=== PATIENT | female | born 1960 | race Caucasian/White ===

== ENCOUNTER 2017-08-23 08:15 | Observation (INO) | payer OTHER ==
[2017-08-23] MEDS ORDERED: Sodium Chloride 0.9% 1,000 ML IV SCH (08:49)
[2017-08-23] MEDS ORDERED: Ondansetron 4 MG/2 ML SDV ONE (09:57)
[2017-08-23] MEDS ORDERED: HYDROmorphone 1 MG/ML Syringe ONE (10:03)
[2017-08-23] MEDS ORDERED: Sodium Chloride 0.9% 1,000 ML IV ONE (10:36)
--- NOTE | 2017-08-23 10:42 | EDM.PDOC ---
ED HPI GENERAL MEDICAL PROBLEM - General Chief Complaint: Abdominal Pain Stated Complaint: ABDOMINAL PAIN Time Seen by Provider: 08/23/17 10:31 - History of Present Illness INITIAL COMMENTS - FREE TEXT/NARRATIVE: T-sheet Left Upper Abdominal Pain Score (Numeric/FACES): 8 - Related Data Allergies Allergy/AdvReac Type Severity Reaction Status Date / Time acetaminophen [From Percocet] Allergy Itching Verified 08/23/17 10:31 oxycodone [From Percocet] Allergy Itching Verified 08/23/17 10:31 Home Meds: Home Meds Metoprolol Tartrate 100 mg PO BEDTIME 01/16/15 [History] Sertraline [Zoloft] 50 mg PO DAILY 01/16/16 [History] Amylase/Lipase/Protease [Creon DR 24,000 Unit] 2 tab PO ASDIRECTED 06/01/16 [ History] Hydrocodone/Acetaminophen [Lortab 10-325 mg Tablet] 1 tab PO ASDIRECTED PRN 08/13 [History] Inulin/Chromium Picolinate [Fiber Gummies] 2 tab.chew PO DAILY 06/01/16 [History ] Lansoprazole [Prevacid] 30 mg PO DAILY 06/01/16 [History] Ondansetron HCl [Ondansetron] 4 mg PO ASDIRECTED PRN 06/01/16 [History] Bismuth Subsalicylate [Pepto-Bismol] 262 mg PO ASDIRECTED 08/23/17 [History] Sucralfate 1 gram PO BID 08/23/17 [History] Past Medical History - Past Health History Medical/Surgical History: Denies Medical/Surgical History HEENT History: Reports: None Cardiovascular History: Reports: Hypertension Respiratory History: Reports: None Gastrointestinal History: Reports: Diverticulosis, GERD, Pancreatitis Genitourinary History: Reports: 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 Musculoskeletal History: Reports: None Neurological History: Reports: None Psychiatric History: Reports: Anxiety, Depression Endocrine/Metabolic History: Reports: None Hematologic History: Reports: None Immunologic History: Reports: None Oncologic (Cancer) History: Reports: None Dermatologic History: Reports: None - Infectious Disease History Infectious Disease History: Reports: Chicken Pox - Past Surgical History Head Surgeries/Procedures: Reports: None HEENT Surgical History: Reports: Cataract Surgery Cardiovascular Surgical History: Reports: None Respiratory Surgical History: Reports: None GI Surgical History: Reports: Cholecystectomy, EGD Other GI Surgeries/Procedures: hx of whipple procedure done in August of 2014 Female Surgical History: Reports: None Endocrine Surgical History: Reports: None Musculoskeletal Surgical History: Reports: Hip Replacement Dermatological Surgical History: Reports: None Social & Family History - Family History Family Medical History: Noncontributory - Tobacco Use Smoking Status *Q: Current Every Day Smoker Years of Tobacco use: 20 Packs/Tins Daily: 0.5 Used Tobacco, but Quit: Yes Month/Year Tobacco Last Used: December Second Hand Smoke Exposure: No - Alcohol Use Days Per Week of Alcohol Use: 2 Number of Drinks Per Day: 2 Total Drinks Per Week: 4 - Recreational Drug Use Recreational Drug Use: No Drug Use in Last 12 Months: No ED ROS GENERAL - Review of Systems Review Of Systems: See Below (T-sheet) ED EXAM, GENERAL - Physical Exam Exam: See Below (T-sheet) Course - Vital Signs Last Recorded V/S: Last Vital Signs Temp 35.2 C 08/23/17 10:27 Pulse 91 08/23/17 10:27 Resp 18 08/23/17 10:27 BP 153/93 H 08/23/17 10:27 Pulse Ox 96 08/23/17 10:27 - Orders/Labs/Meds Orders: Active Orders 24 hr Category Date Time Status Sodium Chloride 0.9% [Normal Saline] 1,000 ml Med 08/23/17 10:36 Active IV .Bolus Medication Orders Sodium Chloride (Normal Saline) 1,000 mls @ 999 mls/hr IV .Bolus ONE Stop: 08/23/17 11:36 Meds: Medications Generic Name Dose Route Start Last Admin Trade Name Freq PRN Reason Stop Dose Admin Sodium Chloride 1,000 mls @ 999 mls/hr 08/23/17 10:36 Normal Saline IV 08/23/17 11:36 .Bolus ONE Departure - Departure Time of Disposition: 10:41 Disposition: Refer to Observation Condition: Good Clinical Impression: Pancreatitis - Discharge Information Referrals: Ashanti Malone NP [Primary Care Provider] - - My Orders Last 24 Hours: My Active Orders 08/23/17 10:36 Sodium Chloride 0.9% [Normal Saline] 1,000 ml IV .Bolus - Assessment/Plan Last 24 Hours: My Active Orders 08/23/17 10:36 Sodium Chloride 0.9% [Normal Saline] 1,000 ml IV .Bolus
[2017-08-23] MEDS ORDERED: Ondansetron 4 MG/2 ML SDV IVPUSH PRN (12:55)
--- NOTE | 2017-08-23 13:31 | PCM.HP ---
H&P History of Present Illness - General Admit Problem/Dx: Admission Diagnosis/Problem Admission Diagnosis/Problem Pancreatitis - History of Present Illness Initial Comments - Free Text/Narative: 54 yo female with pmh of chronic pancreatitis s/p cholecystectomy and pylorus preserving pancreaticoduodenectomy for acute on chronic pancreatitis. She was doing well until this month started to develop intermitent abdominal pain with nausea and vomiting. Due to worsening symptoms patient presented to the ED department. Laboratory values were normal according to ED provider but CT scan of abdomen reported stranding about the pancreas. Left Upper Abdominal Pain Score (Numeric/FACES): 3 - Related Data Allergies/Adverse Reactions: Allergies Allergy/AdvReac Type Severity Reaction Status Date / Time acetaminophen [From Percocet] Allergy Itching Verified 08/23/17 10:31 oxycodone [From Percocet] Allergy Itching Verified 08/23/17 10:31 Home Medications: Home Meds Metoprolol Tartrate 100 mg PO BEDTIME 01/16/15 [History] Sertraline [Zoloft] 50 mg PO DAILY 01/16/16 [History] Amylase/Lipase/Protease [Creon DR 24,000 Unit] 2 tab PO ASDIRECTED 06/01/16 [ History] Hydrocodone/Acetaminophen [Lortab 10-325 mg Tablet] 1 tab PO ASDIRECTED PRN 08/13 [History] Inulin/Chromium Picolinate [Fiber Gummies] 2 tab.chew PO DAILY 06/01/16 [History ] Lansoprazole [Prevacid] 30 mg PO DAILY 06/01/16 [History] Ondansetron HCl [Ondansetron] 4 mg PO ASDIRECTED PRN 06/01/16 [History] Bismuth Subsalicylate [Pepto-Bismol] 262 mg PO ASDIRECTED 08/23/17 [History] Sucralfate 1 gram PO BID 08/23/17 [History] Past Medical History - Past Health History Medical/Surgical History: Denies Medical/Surgical History HEENT History: Reports: None Cardiovascular History: Reports: Hypertension Respiratory History: Reports: None Gastrointestinal History: Reports: GERD, Pancreatitis Genitourinary History: Reports: 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 Musculoskeletal History: Reports: Arthritis Neurological History: Reports: None Psychiatric History: Reports: Anxiety, Depression Endocrine/Metabolic History: Reports: None Hematologic History: Reports: None Immunologic History: Reports: None Oncologic (Cancer) History: Reports: None Dermatologic History: Reports: None - Infectious Disease History Infectious Disease History: Reports: Chicken Pox - Past Surgical History Head Surgeries/Procedures: Reports: None HEENT Surgical History: Reports: Cataract Surgery Cardiovascular Surgical History: Reports: None Respiratory Surgical History: Reports: None GI Surgical History: Reports: Cholecystectomy, EGD Other GI Surgeries/Procedures: hx of whipple procedure done in August of 2014 Female Surgical History: Reports: None Endocrine Surgical History: Reports: None Musculoskeletal Surgical History: Reports: Hip Replacement Dermatological Surgical History: Reports: None Social & Family History - Family History Family Medical History: Noncontributory - Tobacco Use Smoking Status *Q: Current Every Day Smoker Years of Tobacco use: 20 Packs/Tins Daily: 0.5 Used Tobacco, but Quit: Yes Month/Year Tobacco Last Used: December Second Hand Smoke Exposure: No - Caffeine Use Caffeine Use: Reports: Coffee - Alcohol Use Days Per Week of Alcohol Use: 2 Number of Drinks Per Day: 2 Total Drinks Per Week: 4 - Recreational Drug Use Recreational Drug Use: No Drug Use in Last 12 Months: No H&P Review of Systems - Review of Systems: Review Of Systems: ROS reveals no pertinent complaints other than HPI. Exam - Exam Exam: See Below - Vital Signs Vital Signs: Last Vital Signs Temp 36.4 C 08/23/17 11:33 Pulse 60 08/23/17 11:33 Resp 18 08/23/17 11:33 BP 166/78 H 08/23/17 11:33 Pulse Ox 96 08/23/17 12:55 Weight: 84.2 kg - Exam General: Alert, Oriented HEENT: Mucosa Moist & [place] Neck: Supple, Trachea Midline Lungs: Clear to Auscultation, Normal Respiratory Effort Cardiovascular: Regular Rate, Regular Rhythm GI/Abdominal Exam: Normal Bowel Sounds, Soft, Non-Tender, No Distention Extremities: Non-Tender, No Pedal Edema Skin: Warm, Dry, Intact - Patient Data Lab Results Last 24 hrs: Laboratory Results - last 24 hr 08/23/17 Range/Units 11:33 Urine Color YELLOW Urine Appearance CLEAR Urine pH 6.0 (5.0-8.0) Ur Specific [place] <= 1.005 (1.001-1.035) Urine Protein NEGATIVE (NEGATIVE) mg/dL Urine Glucose (UA) NEGATIVE (NEGATIVE) mg/dL Urine Ketones NEGATIVE (NEGATIVE) mg/dL Urine Occult Blood TRACE-LYSED (NEGATIVE) Urine Nitrite NEGATIVE (NEGATIVE) Urine Bilirubin NEGATIVE (NEGATIVE) Urine Urobilinogen 0.2 (<2.0) EU/dL Ur Leukocyte Esterase NEGATIVE (NEGATIVE) Urine RBC 0-1 (0-2/HPF) Urine WBC 0-1 (0-5/HPF) Ur Epithelial Cells OCCASIONAL (NONE-FEW) Urine Bacteria RARE (NEGATIVE) Result Diagrams: 08/24/17 05:28 08/24/17 05:28 Problem List Initiated/Reviewed/Updated: Yes Orders Last 24hrs: Active Orders 24 hr Category Date Time Status Patient Status [ADT] Stat ADT 08/23/17 10:48 Active Oxygen Therapy [RC] PRN Care 08/23/17 12:55 Ordered Up ad Erika [RC] ASDIRECTED Care 08/23/17 12:55 Ordered VTE/DVT Education [RC] PER UNIT ROUTINE Care 08/23/17 12:55 Ordered Vital Signs [RC] Q4H Care 08/23/17 12:55 Ordered Nothing per Oral Now Diet [DIET] Diet 08/23/17 Breakfast Ordered CBC WITH AUTO DIFF [HEME] AM Lab 08/24/17 05:11 Ordered CBC WITH AUTO DIFF [HEME] AM Lab 08/25/17 05:11 Ordered COMPREHENSIVE METABOLIC PN,CMP [CHEM] AM Lab 08/24/17 05:11 Ordered COMPREHENSIVE METABOLIC PN,CMP [CHEM] AM Lab 08/25/17 05:11 Ordered LIPASE [CHEM] AM Lab 08/24/17 05:11 Ordered LIPID PANEL [CHEM] AM Lab 08/24/17 05:11 Ordered Enoxaparin [Lovenox] Med 08/23/17 13:00 Ordered 40 mg SUBCUT Q24H Morphine Med 08/23/17 12:55 Ordered 2 mg IVPUSH Q2H PRN Ondansetron [Zofran] Med 08/23/17 12:55 Ordered 4 mg IVPUSH Q4H PRN Sodium Chloride 0.9% [Normal Saline] 1,000 ml Med 08/23/17 08:49 Active IV ASDIRECTED Sodium Chloride 0.9% [Normal Saline] 1,000 ml Med 08/23/17 13:00 Ordered IV ASDIRECTED Sequential Compression Device [OM.PC] Per Unit Routine Oth 08/23/17 12:56 Ordered Resuscitation Status Routine Resus Stat 08/23/17 12:55 Ordered Medication Orders Enoxaparin Sodium (Lovenox) 40 mg SUBCUT Q24H [facility] Sodium Chloride (Normal Saline) 1,000 mls @ 999 mls/hr IV ASDIRECTED [facility] Last Admin: 08/23/17 09:02 Dose: 999 mls/hr Sodium Chloride (Normal Saline) 1,000 mls @ 200 mls/hr IV ASDIRECTED [facility] Morphine Sulfate (Morphine) 2 mg IVPUSH Q2H PRN PRN Reason: Pain (severe 7-10) Stop: 08/24/17 12:57 Ondansetron HCl (Zofran) 4 mg IVPUSH Q4H PRN PRN Reason: Nausea Assessment/Plan Comment:: 57 yo female admitted with acute on chronic pancreatitis. We will treat with IV fluids, bowel rest, and prn morphine for abdominal pain.
[2017-08-23 14:24] LABS: CHLORIDE,CL 99 mmol/L (98-107); SODIUM,NA 136 mmol/L (136-145)
[2017-08-23] MEDS: Morphine 4 MG/ML Syringe IVPUSH PRN ×3 (14:46→21:48)
[2017-08-23] MEDS: Enoxaparin 40 MG/0.4 ML Syringe SUBCUT SCH (14:46)
[2017-08-23] MEDS: Sodium Chloride 0.9% 1,000 ML IV SCH ×2 (14:47→20:15)
--- NOTE | 2017-08-23 17:01 | CT ---
CT of the abdomen and pelvis without contrast. HISTORY: Pain TECHNIQUE: Axial CT images were obtained of the abdomen and pelvis without contrast. Coronal and sagi ttal reconstructions obtained. FINDINGS: The lung bases are clear, no pleural effusion. The liver appears heterogeneous in density without a focal hepatic mass. The spleen is nodular in con tour containing multiple small calcifications. The patient is status post Whipple. There is mild stra nding adjacent to the remaining pancreas. Pathologically enlarged mesenteric and retroperitoneal lymph nodes are noted. Mild thickening of the left adrenal gland. There are no calcifications noted within the kidneys or along the courses of the ureters bilaterally. The large and small bowel are normal in caliber without evidence of obstruction. The appendix appears normal. There is no bulky pelvic lymphadenopathy. No free fluid. No free air. The urinary bladder ap pears normal. Mild diverticulosis without evidence of diverticulitis. Urinary bladder is normal. Right total hip hardware demonstrated. Mild degenerative changes noted within the lumbar spine. IMPRESSION: 1. Mild peripancreatic stranding adjacent to the residual pancreas consistent with pancreatitis. 2. Patient is status post Whipple procedure. 3. Moderate fatty infiltration of the liver. 4. Nodular and heterogeneous appearing spleen. Correlation with previous imaging may be beneficial. L ine 5. Nodular thickening of the left adrenal gland.
[2017-08-24] MEDS: Sodium Chloride 0.9% 1,000 ML IV SCH ×5 (01:21→21:43)
[2017-08-24] MEDS: Morphine 4 MG/ML Syringe IVPUSH PRN ×2 (04:15→08:18)
[2017-08-24 06:20] LABS: CHLORIDE,CL 107 mmol/L (98-107); SODIUM,NA 139 mmol/L (136-145)
[2017-08-24] MEDS: Enoxaparin 40 MG/0.4 ML Syringe SUBCUT SCH (12:01)
[2017-08-24] MEDS ORDERED: Metoprolol Tartrate 50 MG Tab PO ONE (12:04)
[2017-08-24] MEDS ORDERED: Pantoprazole 40 MG Vial IVPUSH SCH (12:15)
[2017-08-24] MEDS ORDERED: HYDROmorphone 1 MG/ML Syringe IVPUSH PRN (16:22)
--- NOTE | 2017-08-24 18:28 | PCM.PN ---
- General Info Date of Service: 08/24/17 Subjective Update: Patient's abdominal pain is improving, she did not require Zofran since admission, she has not required all that much in terms of pain medication. She does have a chronic history of pancreatitis, she states that her last bout that required hospitalization was one year ago. - Review of Systems General: Reports: Weakness Gastrointestinal: Reports: Abdominal Pain - Patient Data Vitals - Most Recent: Last Vital Signs Temp 35.9 C 08/24/17 15:00 Pulse 50 L 08/24/17 15:00 Resp 18 08/24/17 15:00 BP 142/80 H 08/24/17 15:00 Pulse Ox 97 08/24/17 15:00 Weight - Most Recent: 84.2 kg I&O - Last 24 Hours: Intake & Output 08/24/17 08/24/17 08/24/17 06:59 14:59 22:59 Intake Total 999 2740 Output Total 1110 3220 Balance -111 -480 Lab Results Last 24 Hours: Laboratory Results - last 24 hr 08/24/17 08/24/17 Range/Units 05:28 05:28 WBC 6.45 (4.0-11.0) K/uL RBC 4.01 L (4.30-5.90) M/uL Hgb 14.4 (12.0-16.0) g/dL Hct 42.5 (36.0-46.0) % MCV 106.0 H (80.0-98.0) fL MCH 35.9 H (27.0-32.0) pg MCHC 33.9 (31.0-37.0) g/dL RDW Std Deviation 55.5 (28.0-62.0) fl RDW Coeff of Rosalinda 14 (11.0-15.0) % Plt Count 194 (150-400) K/uL MPV 10.40 (7.40-12.00) fL Neut % (Auto) 57.5 (48.0-80.0) % Lymph % (Auto) 32.2 (16.0-40.0) % [place] % (Auto) 8.2 (0.0-15.0) % Eos % (Auto) 1.6 (0.0-7.0) % Baso % (Auto) 0.5 (0.0-1.5) % Neut # (Auto) 3.7 (1.4-5.7) K/uL Lymph # (Auto) 2.1 (0.6-2.4) K/uL [place] # (Auto) 0.5 (0.0-0.8) K/uL Eos # (Auto) 0.1 (0.0-0.7) K/uL Baso # (Auto) 0.0 (0.0-0.1) K/uL Nucleated RBC % 0.0 /100WBC Nucleated RBCs # 0 K/uL Sodium 139 (136-145) mmol/L Potassium 3.5 (3.5-5.1) mmol/L Chloride 107 (98-107) mmol/L Carbon Dioxide 25.2 (21.0-32.0) mmol/L BUN 4 L (7.0-18.0) mg/dL Creatinine 0.5 L (0.6-1.0) mg/dL Est Cr Clr Drug Dosing 140.42 mL/min Estimated GFR (MDRD) > 60.0 ml/min Glucose 82 (74-106) mg/dL Calcium 8.1 L (8.5-10.1) mg/dL Total Bilirubin 0.6 (0.2-1.0) mg/dL AST 43 H (15-37) IU/L ALT 25 (14-63) IU/L Alkaline Phosphatase 73 (46-116) U/L Total Protein 5.6 L (6.4-8.2) g/dL Albumin 2.6 L (3.4-5.0) g/dL Globulin 3.0 (2.0-3.5) g/dL Albumin/Globulin Ratio 0.9 L (1.3-2.8) Triglycerides 134 (0-200) mg/dL Cholesterol 109 (50-200) mg/dL LDL Cholesterol, Calc 49 L (60-180) mg/dL VLDL Cholesterol 26 (5-55) mg/dL HDL Cholesterol 33 L (40-60) mg/dL Cholesterol/HDL Ratio 3.3 (3.3-6.0) Lipase 112 (73-393) U/L Med Orders - Current: Current Medications Enoxaparin Sodium (Lovenox) 40 mg SUBCUT Q24H [facility] Last Admin: 08/24/17 12:01 Dose: 40 mg Hydromorphone HCl (Dilaudid) 1 mg IVPUSH Q2H PRN PRN Reason: Pain Last Admin: 08/24/17 16:48 Dose: 1 mg Sodium Chloride (Normal Saline) 1,000 mls @ 999 mls/hr IV ASDIRECTED [facility] Last Admin: 08/23/17 09:02 Dose: 999 mls/hr Sodium Chloride (Normal Saline) 1,000 mls @ 200 mls/hr IV ASDIRECTED [facility] Last Admin: 08/24/17 16:25 Dose: 200 mls/hr Ondansetron HCl (Zofran) 4 mg IVPUSH Q4H PRN PRN Reason: Nausea Pantoprazole Sodium (Protonix Iv) 40 mg IVPUSH DAILY [facility] Last Admin: 08/24/17 12:43 Dose: 40 mg Discontinued Medications Hydromorphone HCl (Dilaudid) Confirm Administered Dose 1 mg .ROUTE .STK-MED ONE Stop: 08/23/17 10:04 Last Admin: 08/23/17 10:06 Dose: 1 mg Sodium Chloride (Normal Saline) 1,000 mls @ 999 mls/hr IV .Bolus ONE Stop: 08/23/17 11:36 Last Admin: 08/23/17 10:41 Dose: 999 mls/hr Metoprolol Tartrate (Lopressor) 50 mg PO ONETIME ONE Stop: 08/24/17 12:05 Last Admin: 08/24/17 12:43 Dose: 50 mg Morphine Sulfate (Morphine) 2 mg IVPUSH Q2H PRN PRN Reason: Pain (severe 7-10) Stop: 08/24/17 12:57 Last Admin: 08/24/17 08:18 Dose: 2 mg Ondansetron HCl (Zofran) Confirm Administered Dose 4 mg .ROUTE .STK-MED ONE Stop: 08/23/17 09:58 Last Admin: 08/23/17 10:00 Dose: 4 mg - Exam General: Alert, Oriented, Cooperative, Mild Distress Lungs: Clear to Auscultation, Normal Respiratory Effort Cardiovascular: Regular Rate, Regular Rhythm GI/Abdominal Exam: Tender, Abnormal Bowel Sounds Extremities: Normal Inspection, Normal Range of Motion, Non-Tender - Problem List Review Problem List Initiated/Reviewed/Updated: Yes - My Orders Last 24 Hours: My Active Orders 08/24/17 12:15 Pantoprazole [ProTONIX IV] 40 mg IVPUSH DAILY 08/24/17 16:22 HYDROmorphone [Dilaudid] 1 mg IVPUSH Q2H PRN 08/25/17 Breakfast Clear Liquid Diet [DIET] - Plan Plan:: 57 yo female admitted with acute on chronic pancreatitis. We will treat with IV fluids, bowel rest, and prn morphine for abdominal pain. -Protonix for the patient 40 mg IV twice a day -Shall advance the patient's diet to clear liquids later in the evening and assess if she is able to tolerate without any nausea or vomiting.
[2017-08-24] MEDS: Pantoprazole 40 MG Vial IVPUSH SCH (21:41)
[2017-08-25] MEDS: Sodium Chloride 0.9% 1,000 ML IV SCH ×4 (02:41→14:04)
[2017-08-25 05:49] LABS: CHLORIDE,CL 105 mmol/L (98-107); SODIUM,NA 138 mmol/L (136-145)
[2017-08-25] MEDS ORDERED: Potassium Chloride 20 MEQ Tab.ER PO ONE (09:06)
[2017-08-25] MEDS: Pantoprazole 40 MG Vial IVPUSH SCH (10:18)
[2017-08-25] MEDS ORDERED: Magnesium Sulfate/Water 4 GM in Premix Bag 1 BAG IV ONE (10:19)
--- NOTE | 2017-08-25 10:54 | PCM.PN ---
- General Info Date of Service: 08/25/17 Subjective Update: This is a 57 yo female with acute on chronic pancreatitis HD 3. Patient stated this morning that shes feeling much better today. She hasnt taken the morphine since 5pm yesterday. She was started on clear liquid which she was able to tolerate. Not complaining of nausea/vomiting. Functional Status: Reports: Pain Controlled, Tolerating Diet, Ambulating - Review of Systems General: Reports: No Symptoms HEENT: Reports: No Symptoms Pulmonary: Reports: No Symptoms Cardiovascular: Reports: No Symptoms Gastrointestinal: Reports: No Symptoms Genitourinary: Reports: No Symptoms - Patient Data Vitals - Most Recent: Last Vital Signs Temp 36.3 C 08/25/17 07:00 Pulse 68 08/25/17 07:00 Resp 16 08/25/17 07:00 BP 137/74 08/25/17 07:00 Pulse Ox 97 08/25/17 07:00 Weight - Most Recent: 84.2 kg I&O - Last 24 Hours: Intake & Output 08/24/17 08/25/17 08/25/17 22:59 06:59 14:59 Intake Total 2740 3143 1119 Output Total 3220 3560 Balance -480 -417 1119 Lab Results Last 24 Hours: Laboratory Results - last 24 hr 08/25/17 08/25/17 08/25/17 Range/Units 05:03 05:03 08:38 WBC 5.98 (4.0-11.0) K/uL RBC 4.07 L (4.30-5.90) M/uL Hgb 14.5 (12.0-16.0) g/dL Hct 42.8 (36.0-46.0) % MCV 105.2 H (80.0-98.0) fL MCH 35.6 H (27.0-32.0) pg MCHC 33.9 (31.0-37.0) g/dL RDW Std Deviation 53.5 (28.0-62.0) fl RDW Coeff of Rosalinda 14 (11.0-15.0) % Plt Count 200 (150-400) K/uL MPV 9.80 (7.40-12.00) fL Neut % (Auto) 62.9 (48.0-80.0) % Lymph % (Auto) 26.9 (16.0-40.0) % [place] % (Auto) 8.7 (0.0-15.0) % Eos % (Auto) 1.2 (0.0-7.0) % Baso % (Auto) 0.3 (0.0-1.5) % Neut # (Auto) 3.8 (1.4-5.7) K/uL Lymph # (Auto) 1.6 (0.6-2.4) K/uL [place] # (Auto) 0.5 (0.0-0.8) K/uL Eos # (Auto) 0.1 (0.0-0.7) K/uL Baso # (Auto) 0.0 (0.0-0.1) K/uL Nucleated RBC % 0.0 /100WBC Nucleated RBCs # 0 K/uL Sodium 138 (136-145) mmol/L Potassium 3.2 L (3.5-5.1) mmol/L Chloride 105 (98-107) mmol/L Carbon Dioxide 24.4 (21.0-32.0) mmol/L BUN 3 L (7.0-18.0) mg/dL Creatinine 0.4 L (0.6-1.0) mg/dL Est Cr Clr Drug Dosing 175.53 mL/min Estimated GFR (MDRD) > 60.0 ml/min Glucose 79 (74-106) mg/dL Calcium 8.4 L (8.5-10.1) mg/dL Magnesium 1.1 L (1.5-2.0) mg/dL Total Bilirubin 0.8 (0.2-1.0) mg/dL AST 40 H (15-37) IU/L ALT 24 (14-63) IU/L Alkaline Phosphatase 72 (46-116) U/L Total Protein 5.7 L (6.4-8.2) g/dL Albumin 2.6 L (3.4-5.0) g/dL Globulin 3.1 (2.0-3.5) g/dL Albumin/Globulin Ratio 0.8 L (1.3-2.8) Med Orders - Current: Current Medications Enoxaparin Sodium (Lovenox) 40 mg SUBCUT Q24H [facility] Last Admin: 08/24/17 12:01 Dose: 40 mg Hydromorphone HCl (Dilaudid) 1 mg IVPUSH Q2H PRN PRN Reason: Pain Last Admin: 08/24/17 16:48 Dose: 1 mg Magnesium Sulfate 4 gm/ Premix 100 mls @ 50 mls/hr IV ONETIME ONE Stop: 08/25/17 12:18 Last Admin: 08/25/17 10:37 Dose: 50 mls/hr Sodium Chloride (Normal Saline) 1,000 mls @ 150 [facility] Last Admin: 08/25/17 10:37 Dose: 150 mls/hr Ondansetron HCl (Zofran) 4 mg IVPUSH Q4H PRN PRN Reason: Nausea Pantoprazole Sodium (Protonix Iv) 40 mg IVPUSH BID [facility] Last Admin: 08/25/17 10:18 Dose: 40 mg Discontinued Medications Hydromorphone HCl (Dilaudid) Confirm Administered Dose 1 mg .ROUTE .STK-MED ONE Stop: 08/23/17 10:04 Last Admin: 08/23/17 10:06 Dose: 1 mg Sodium Chloride (Normal Saline) 1,000 mls @ 999 mls/hr IV .Bolus ONE Stop: 08/23/17 11:36 Last Admin: 08/23/17 10:41 Dose: 999 mls/hr Sodium Chloride (Normal Saline) 1,000 mls @ 999 [facility] Last Admin: 08/23/17 09:02 Dose: 999 mls/hr Sodium Chloride (Normal Saline) 1,000 mls @ 200 [facility]ls[facility] Last Admin: 08/25/17 07:50 Dose: 200 mls/hr Metoprolol Tartrate (Lopressor) 50 mg PO ONETIME ONE Stop: 08/24/17 12:05 Last Admin: 08/24/17 12:43 Dose: 50 mg Morphine Sulfate (Morphine) 2 mg IVPUSH Q2H PRN PRN Reason: Pain (severe 7-10) Stop: 08/24/17 12:57 Last Admin: 08/24/17 08:18 Dose: 2 mg Ondansetron HCl (Zofran) Confirm Administered Dose 4 mg .ROUTE .STK-MED ONE Stop: 08/23/17 09:58 Last Admin: 08/23/17 10:00 Dose: 4 mg Pantoprazole Sodium (Protonix Iv) 40 mg IVPUSH DAILY [facility] Last Admin: 08/24/17 12:43 Dose: 40 mg Potassium Chloride (Klor-Con M20) 40 meq PO ONETIME ONE Stop: 08/25/17 09:07 Last Admin: 08/25/17 10:18 Dose: 40 meq - Exam General: Alert, Oriented, No Acute Distress Neck: Supple Lungs: Clear to Auscultation, Normal Respiratory Effort Cardiovascular: Regular Rate, Regular Rhythm GI/Abdominal Exam: Normal Bowel Sounds, Soft, Non-Tender, No Organomegaly, No Distention Extremities: Normal Inspection, Normal Range of Motion, Non-Tender, No Pedal Edema, Normal Capillary Refill Skin: Warm, Dry, Intact Neurological: No New Focal Deficit - Problem List Review Problem List Initiated/Reviewed/Updated: Yes - My Orders Last 24 Hours: My Active Orders 08/24/17 16:22 HYDROmorphone [Dilaudid] 1 mg IVPUSH Q2H PRN 08/24/17 21:00 Pantoprazole [ProTONIX IV] 40 mg IVPUSH BID 08/25/17 05:03 PHOSPHORUS [CHEM] Routine 08/25/17 10:19 Magnesium Sulfate/Water [Magnesium Sulfate 4 GM in Water 100 ML] 4 gm Premix Bag 1 bag IV ONETIME - Assessment Assessment:: This is a 57 yo female with acute on chronic pancreatitis HD 3. - Plan Plan:: 57 yo female admitted secondary to abdominal pain, inability to tolerate oral intake, nausea/vomiting likely etiology is acute on chronic pancreatitis. We will treat with IV fluids, bowel rest, and prn morphine for abdominal pain. A/P: 1: Abdominal pain, nausea/vomiting all resolved secondary to Acute on Chronic Pancreatitis - Pt. seems to be tolerating clear liquid and so we will be progressing her diet. 2: Hypokalemia and hypomagnesemia - checked Mg as well which came back low at 1.1 - started on 40mEq K tab and 4mg IV one time dose 3. If the patient tolerates the diet progression she will be DC'd later today and will follow up with PCP and GI
[2017-08-25] MEDS: Enoxaparin 40 MG/0.4 ML Syringe SUBCUT SCH (14:31)
[2017-08-25 16:49] VITALS: BP 166/68
[2017-08-25] MEDS ORDERED: Metoprolol Tartrate 50 MG Tab PO ONE (17:17)
--- NOTE | 2017-08-25 17:20 | PCM.DCSUM1 ---
<ChristinaJm Z - Last Filed: 08/25/17 17:20> Discharge Summary - Discharge Data Discharge Disposition: Home, Self-Care 01 Condition: Stable - Patient Instructions Diet: Heart Healthy Diet, No Alcoholic Beverages Activity: As Tolerated Driving: Do Not Drive Showering/Bathing: May Shower Notify Provider of: Fever, Increased Pain, Swelling and Redness, Drainage, Nausea and/or Vomiting - Discharge Plan Prescriptions/Med Rec: Omeprazole 40 mg PO BIDAC 30 Days #60 cap.sr Home Medications: Home Meds Metoprolol Tartrate 100 mg PO BEDTIME 01/16/15 [History] Sertraline [Zoloft] 50 mg PO DAILY 01/16/16 [History] Amylase/Lipase/Protease [Crepooja DR 24,000 Unit] 2 tab PO ASDIRECTED 06/01/16 [ History] Hydrocodone/Acetaminophen [Lortab 10-325 mg Tablet] 1 tab PO ASDIRECTED PRN 08/13 [History] Inulin/Chromium Picolinate [Fiber Gummies] 2 tab.chew PO DAILY 06/01/16 [History ] Ondansetron HCl [Ondansetron] 4 mg PO ASDIRECTED PRN 06/01/16 [History] Bismuth Subsalicylate [Pepto-Bismol] 262 mg PO ASDIRECTED 08/23/17 [History] Sucralfate 1 gram PO BID 08/23/17 [History] Omeprazole 40 mg PO BIDAC 30 Days #60 cap.sr 08/25/17 [Rx] Patient Handouts: Acetaminophen; Hydrocodone tablets or capsules, Acute Pancreatitis, [id number], Chronic Pancreatitis, Omeprazole tablets (OTC) Referrals: Ashanti Malone NP [Primary Care Provider] - 08/30/17 9:45 am Denise Flaherty NP [Ordering Only Provider] - 10/11/17 2:30 pm - Patient Data Vitals - Most Recent: Last Vital Signs Temp 36.3 C 08/25/17 15:00 Pulse 64 08/25/17 15:00 Resp 16 08/25/17 15:00 BP 166/68 H 08/25/17 15:00 Pulse Ox 98 08/25/17 15:00 Weight - Most Recent: 84.2 kg I&O - Last 24 hours: Intake & Output 08/25/17 08/25/17 08/25/17 06:59 14:59 22:59 Intake Total 3147 1118 4903 Output Total 3568 6350 Balance -417 1119 -4624 Lab Results - Last 24 hrs: Laboratory Results - last 24 hr 08/25/17 08/25/17 08/25/17 Range/Units 05:03 05:03 05:03 WBC 5.98 (4.0-11.0) K/uL RBC 4.07 L (4.30-5.90) M/uL Hgb 14.5 (12.0-16.0) g/dL Hct 42.8 (36.0-46.0) % MCV 105.2 H (80.0-98.0) fL MCH 35.6 H (27.0-32.0) pg MCHC 33.9 (31.0-37.0) g/dL RDW Std Deviation 53.5 (28.0-62.0) fl RDW Coeff of Rosalinda 14 (11.0-15.0) % Plt Count 200 (150-400) K/uL MPV 9.80 (7.40-12.00) fL Neut % (Auto) 62.9 (48.0-80.0) % Lymph % (Auto) 26.9 (16.0-40.0) % Wallace % (Auto) 8.7 (0.0-15.0) % Eos % (Auto) 1.2 (0.0-7.0) % Baso % (Auto) 0.3 (0.0-1.5) % Neut # (Auto) 3.8 (1.4-5.7) K/uL Lymph # (Auto) 1.6 (0.6-2.4) K/uL Wallace # (Auto) 0.5 (0.0-0.8) K/uL Eos # (Auto) 0.1 (0.0-0.7) K/uL Baso # (Auto) 0.0 (0.0-0.1) K/uL Nucleated RBC % 0.0 /100WBC Nucleated RBCs # 0 K/uL Sodium 138 (136-145) mmol/L Potassium 3.2 L (3.5-5.1) mmol/L Chloride 105 (98-107) mmol/L Carbon Dioxide 24.4 (21.0-32.0) mmol/L BUN 3 L (7.0-18.0) mg/dL Creatinine 0.4 L (0.6-1.0) mg/dL Est Cr Clr Drug Dosing 175.53 mL/min Estimated GFR (MDRD) > 60.0 ml/min Glucose 79 (74-106) mg/dL Calcium 8.4 L (8.5-10.1) mg/dL Phosphorus 4.0 (2.6-4.7) mg/dL Magnesium (1.5-2.0) mg/dL Total Bilirubin 0.8 (0.2-1.0) mg/dL AST 40 H (15-37) IU/L ALT 24 (14-63) IU/L Alkaline Phosphatase 72 (46-116) U/L Total Protein 5.7 L (6.4-8.2) g/dL Albumin 2.6 L (3.4-5.0) g/dL Globulin 3.1 (2.0-3.5) g/dL Albumin/Globulin Ratio 0.8 L (1.3-2.8) 08/25/17 Range/Units 08:38 WBC (4.0-11.0) K/uL RBC (4.30-5.90) M/uL Hgb (12.0-16.0) g/dL Hct (36.0-46.0) % MCV (80.0-98.0) fL MCH (27.0-32.0) pg MCHC (31.0-37.0) g/dL RDW Std Deviation (28.0-62.0) fl RDW Coeff of Rosalinda (11.0-15.0) % Plt Count (150-400) K/uL MPV (7.40-12.00) fL Neut % (Auto) (48.0-80.0) % Lymph % (Auto) (16.0-40.0) % Wallace % (Auto) (0.0-15.0) % Eos % (Auto) (0.0-7.0) % Baso % (Auto) (0.0-1.5) % Neut # (Auto) (1.4-5.7) K/uL Lymph # (Auto) (0.6-2.4) K/uL Wallace # (Auto) (0.0-0.8) K/uL Eos # (Auto) (0.0-0.7) K/uL Baso # (Auto) (0.0-0.1) K/uL Nucleated RBC % /100WBC Nucleated RBCs # K/uL Sodium (136-145) mmol/L Potassium (3.5-5.1) mmol/L Chloride (98-107) mmol/L Carbon Dioxide (21.0-32.0) mmol/L BUN (7.0-18.0) mg/dL Creatinine (0.6-1.0) mg/dL Est Cr Clr Drug Dosing mL/min Estimated GFR (MDRD) ml/min Glucose (74-106) mg/dL Calcium (8.5-10.1) mg/dL Phosphorus (2.6-4.7) mg/dL Magnesium 1.1 L (1.5-2.0) mg/dL Total Bilirubin (0.2-1.0) mg/dL AST (15-37) IU/L ALT (14-63) IU/L Alkaline Phosphatase (46-116) U/L Total Protein (6.4-8.2) g/dL Albumin (3.4-5.0) g/dL Globulin (2.0-3.5) g/dL Albumin/Globulin Ratio (1.3-2.8) Med Orders - Current: Current Medications Enoxaparin Sodium (Lovenox) 40 mg SUBCUT Q24H [facility] Last Admin: 08/25/17 14:31 Dose: 40 mg Hydromorphone HCl (Dilaudid) 1 mg IVPUSH Q2H PRN PRN Reason: Pain Last Admin: 08/24/17 16:48 Dose: 1 mg Sodium Chloride (Normal Saline) 1,000 mls @ 150 mls/hr IV ASDIRECTED [facility] Last Admin: 08/25/17 14:04 Dose: 150 mls/hr Metoprolol Tartrate (Lopressor) 100 mg PO ONETIME ONE Stop: 08/25/17 17:18 Ondansetron HCl (Zofran) 4 mg IVPUSH Q4H PRN PRN Reason: Nausea Pantoprazole Sodium (Protonix Iv) 40 mg IVPUSH BID [facility] Last Admin: 08/25/17 10:18 Dose: 40 mg Discontinued Medications Hydromorphone HCl (Dilaudid) Confirm Administered Dose 1 mg .ROUTE .STK-MED ONE Stop: 08/23/17 10:04 Last Admin: 08/23/17 10:06 Dose: 1 mg Sodium Chloride (Normal Saline) 1,000 mls @ 999 mls/hr IV .Bolus ONE Stop: 08/23/17 11:36 Last Admin: 08/23/17 10:41 Dose: 999 mls/hr Sodium Chloride (Normal Saline) 1,000 mls @ 999 mls/hr IV ASDIRECTED [facility] Last Admin: 08/23/17 09:02 Dose: 999 mls/hr Sodium Chloride (Normal Saline) 1,000 mls @ 200 mls/hr IV ASDIRECTED [facility] Last Admin: 08/25/17 07:50 Dose: 200 mls/hr Magnesium Sulfate 4 gm/ Premix 100 mls @ 50 mls/hr IV ONETIME ONE Stop: 08/25/17 12:18 Last Admin: 08/25/17 10:37 Dose: 50 mls/hr Metoprolol Tartrate (Lopressor) 50 mg PO ONETIME ONE Stop: 08/24/17 12:05 Last Admin: 08/24/17 12:43 Dose: 50 mg Morphine Sulfate (Morphine) 2 mg IVPUSH Q2H PRN PRN Reason: Pain (severe 7-10) Stop: 08/24/17 12:57 Last Admin: 08/24/17 08:18 Dose: 2 mg Ondansetron HCl (Zofran) Confirm Administered Dose 4 mg .ROUTE .STK-MED ONE Stop: 08/23/17 09:58 Last Admin: 08/23/17 10:00 Dose: 4 mg Pantoprazole Sodium (Protonix Iv) 40 mg IVPUSH DAILY [facility] Last Admin: 08/24/17 12:43 Dose: 40 mg Potassium Chloride (Klor-Con M20) 40 meq PO ONETIME ONE Stop: 08/25/17 09:07 Last Admin: 08/25/17 10:18 Dose: 40 meq <Arden Baldwin - Last Filed: 08/26/17 08:33> Discharge Summary - Discharge Data Discharge Date: 08/25/17 - Patient Data Vitals - Most Recent: Last Vital Signs Temp 97.3 F 08/25/17 15:00 Pulse 64 08/25/17 17:48 Resp 16 08/25/17 15:00 BP 166/68 H 08/25/17 17:48 Pulse Ox 98 08/25/17 15:00 I&O - Last 24 hours: Intake & Output 08/25/17 08/26/17 08/26/17 22:59 06:59 14:59 Intake Total 2233 Output Total 3150 Balance -917 Lab Results - Last 24 hrs: Laboratory Results - last 24 hr 08/25/17 08/25/17 Range/Units 05:03 08:38 Phosphorus 4.0 (2.6-4.7) mg/dL Magnesium 1.1 L (1.5-2.0) mg/dL Med Orders - Current: Current Medications Discontinued Medications Enoxaparin Sodium (Lovenox) 40 mg SUBCUT Q24H [facility] Last Admin: 08/25/17 14:31 Dose: 40 mg Hydromorphone HCl (Dilaudid) Confirm Administered Dose 1 mg .ROUTE .STK-MED ONE Stop: 08/23/17 10:04 Last Admin: 08/23/17 10:06 Dose: 1 mg Hydromorphone HCl (Dilaudid) 1 mg IVPUSH Q2H PRN PRN Reason: Pain Last Admin: 08/24/17 16:48 Dose: 1 mg Sodium Chloride (Normal Saline) 1,000 mls @ 999 mls/hr IV .Bolus ONE Stop: 08/23/17 11:36 Last Admin: 08/23/17 10:41 Dose: 999 mls/hr Sodium Chloride (Normal Saline) 1,000 mls @ 999 mls/hr IV ASDIRECTED [facility] Last Admin: 08/23/17 09:02 Dose: 999 mls/hr Sodium Chloride (Normal Saline) 1,000 mls @ 200 mls/hr IV ASDIRECTED [facility] Last Admin: 08/25/17 07:50 Dose: 200 mls/hr Magnesium Sulfate 4 gm/ Premix 100 mls @ 50 mls/hr IV ONETIME ONE Stop: 08/25/17 12:18 Last Admin: 08/25/17 10:37 Dose: 50 mls/hr Sodium Chloride (Normal Saline) 1,000 mls @ 150 mls/hr IV ASDIRECTED [facility] Last Admin: 08/25/17 14:04 Dose: 150 mls/hr Metoprolol Tartrate (Lopressor) 50 mg PO ONETIME ONE Stop: 08/24/17 12:05 Last Admin: 08/24/17 12:43 Dose: 50 mg Metoprolol Tartrate (Lopressor) 100 mg PO ONETIME ONE Stop: 08/25/17 17:18 Last Admin: 08/25/17 17:48 Dose: 100 mg Morphine Sulfate (Morphine) 2 mg IVPUSH Q2H PRN PRN Reason: Pain (severe 7-10) Stop: 08/24/17 12:57 Last Admin: 08/24/17 08:18 Dose: 2 mg Ondansetron HCl (Zofran) Confirm Administered Dose 4 mg .ROUTE .STK-MED ONE Stop: 08/23/17 09:58 Last Admin: 08/23/17 10:00 Dose: 4 mg Ondansetron HCl (Zofran) 4 mg IVPUSH Q4H PRN PRN Reason: Nausea Pantoprazole Sodium (Protonix Iv) 40 mg IVPUSH DAILY [facility] Last Admin: 08/24/17 12:43 Dose: 40 mg Pantoprazole Sodium (Protonix Iv) 40 mg IVPUSH BID [facility] Last Admin: 08/25/17 10:18 Dose: 40 mg Potassium Chloride (Klor-Con M20) 40 meq PO ONETIME ONE Stop: 08/25/17 09:07 Last Admin: 08/25/17 10:18 Dose: 40 meq - Free Text/Narrative Note: I performed a history and physical examination of the patient and discussed patient's management with the resident. I reviewed the resident's note and agree with the documentation findings and plan of care below. Attending provider: Arden Baldwin MD
== END 2017-08-25 18:25 | disposition home or self-care (01) ==
LOC: MW.ED 08:15 → MW.MS 11:09
PROVIDERS: ADMIT Internal Medicine; ATTEND Internal Medicine
DX: K85.90 Acute pancreatitis without necrosis or infection, unspecified (principal); K86.1 Other chronic pancreatitis; E87.6 Hypokalemia; E83.42 Hypomagnesemia; I10 Essential (primary) hypertension; K21.9 Gastro-esophageal reflux disease without esophagitis; M19.90 Unspecified osteoarthritis, unspecified site; F41.9 Anxiety disorder, unspecified; F32.9 Major depressive disorder, single episode, unspecified; F17.210 Nicotine dependence, cigarettes, uncomplicated; Z79.899 Other long term (current) drug therapy; Z79.4 Long term (current) use of insulin; Z90.49 Acquired absence of other specified parts of digestive tract; Z88.5 Allergy status to narcotic agent
CPT/HCPCS: 36415; 74176; 80053; 80061; 81001; 83690; 83735; 84100; 85025; 96361; 96372; 96374; 96375; 96376; 99285; A9270; C9113; G0378; J1170; J1650; J2270; J2405; J3475; J7040

== ENCOUNTER 2018-08-18 08:37 | Inpatient (IN) | payer OTHER ==
--- NOTE | 2018-08-18 09:09 | EDM.PDOC ---
ED HPI GENERAL MEDICAL PROBLEM - General Chief Complaint: Abdominal Pain Stated Complaint: STOMACH SWOLLEN Time Seen by Provider: 08/18/18 09:02 - History of Present Illness INITIAL COMMENTS - FREE TEXT/NARRATIVE: HISTORY AND PHYSICAL: History of present illness: Patient is a 58-year-old white female with history of an cryptitis who also is reported to have a fatty liver who presents with chief complaint of 20 pound weight gain over the last 1-2 weeks with increasing abdominal girth and peripheral edema she denies chest pain shortness of breath has been no vomiting diarrhea or other complaints she has had no localized abdominal pain or other concern she was sent here by her nurse practitioner from the clinic for further evaluation. Review of systems: As per history of present illness and below otherwise all systems reviewed and negative. Past medical history: As per history of present illness and as reviewed below otherwise noncontributory. Surgical history: As per history of present illness and as reviewed below otherwise noncontributory. Social history: No reported history of drug or alcohol abuse. Family history: As per history of present illness and as reviewed below otherwise noncontributory. Physical exam: HEENT: Atraumatic, normocephalic, pupils reactive, negative for conjunctival pallor or scleral icterus, mucous membranes moist, throat clear, neck supple, nontender, trachea midline. Lungs: Clear to auscultation, breath sounds equal bilaterally, chest nontender. Heart: S1S2, regular, negative for clicks, rubs, or JVD. Abdomen: Soft, protuberant with no localized tenderness she is noted to have significant ascites clinically on exam. Negative for masses or hepatosplenomegaly. Negative for costovertebral tenderness. Pelvis: Stable nontender. Genitourinary: Deferred. Rectal: Deferred. Extremities: Atraumatic, negative for cords or calf pain. Neurovascular unremarkable. 3+ edema peripherally inferior extremities Neuro: Awake, alert, oriented. Cranial nerves II through XII unremarkable. Cerebellum unremarkable. Motor and sensory unremarkable throughout. Exam nonfocal. Diagnostics: CBC CMP BNP PT/INR troponin ammonia level chest x-ray EKG CT abdomen and pelvis with IV contrast amylase and lipase UA Therapeutics: Saline at 125 mL an hour Impression: #1 ascites #2 early anasarca #3 history of pancreatitis #4 history of fatty liver disease Definitive disposition and diagnosis as appropriate pending reevaluation and review of above. Abdomen Pain Score (Numeric/FACES): 3 - Related Data Allergies Allergy/AdvReac Type Severity Reaction Status Date / Time oxycodone [From Percocet] Allergy Itching Verified 08/18/18 08:51 Home Meds: Home Meds Sertraline [Zoloft] 100 mg PO DAILY 01/16/16 [History] Amylase/Lipase/Protease [Alexei DR 24,000 Unit] 48,000 unit PO TIDMEALS 06/01/16 [History] Hydrocodone/Acetaminophen [Lortab 10-325 mg Tablet] 1 tab PO Q8H PRN 06/01/16 [ History] Ondansetron HCl [Ondansetron] 4 mg PO TID PRN 06/01/16 [History] Omeprazole 40 mg PO BIDAC 30 Days #60 cap.sr 08/25/17 [Rx] Melatonin 5 mg PO BEDTIME 08/18/18 [History] Metoprolol Succinate [Toprol XL 100mg] 100 mg PO DAILY 08/18/18 [History] Past Medical History - Past Health History Medical/Surgical History: Denies Medical/Surgical History HEENT History: Reports: None Cardiovascular History: Reports: Hypertension Respiratory History: Reports: None Gastrointestinal History: Reports: GERD, Pancreatitis Genitourinary History: Reports: None [employer] ATTENDANT History: Reports: None Musculoskeletal History: Reports: Arthritis Neurological History: Reports: None Psychiatric History: Reports: Anxiety, Depression Endocrine/Metabolic History: Reports: None Hematologic History: Reports: None Immunologic History: Reports: None Oncologic (Cancer) History: Reports: None Dermatologic History: Reports: None - Infectious Disease History Infectious Disease History: Reports: Chicken Pox - Past Surgical History Head Surgeries/Procedures: Reports: None HEENT Surgical History: Reports: Cataract Surgery Cardiovascular Surgical History: Reports: None Respiratory Surgical History: Reports: None GI Surgical History: Reports: Cholecystectomy, EGD Other GI Surgeries/Procedures: hx of whipple procedure done in August of 2014 Female Surgical History: Reports: None Endocrine Surgical History: Reports: None Musculoskeletal Surgical History: Reports: Hip Replacement Dermatological Surgical History: Reports: None Social & Family History - Family History Family Medical History: Noncontributory - Tobacco Use Smoking Status *Q: Former Smoker Used Tobacco, but Quit: Yes Month/Year Tobacco Last Used: 2017 - Caffeine Use Caffeine Use: Reports: None - Recreational Drug Use Recreational Drug Use: No ED ROS GENERAL - Review of Systems Review Of Systems: ROS reveals no pertinent complaints other than HPI. ED EXAM, GENERAL - Physical Exam Exam: See Below (See dictation) Course - Vital Signs Last Recorded V/S: Last Vital Signs Temp 36.2 C 08/18/18 08:53 Pulse 70 08/18/18 12:30 Resp 16 08/18/18 12:30 BP 96/62 08/18/18 12:30 Pulse Ox 96 08/18/18 12:30 - Orders/Labs/Meds Orders: Active Orders 24 hr Category Date Time Status EKG Documentation Completion [RC] STAT Care 08/18/18 09:05 Active Pulse Oximetry [RC] ASDIRECTED Care 08/18/18 09:05 Active UA RFX LAURENT AND CULT IF INDIC [URIN] Stat Lab 08/18/18 09:05 Ordered Sodium Chloride 0.9% [Normal Saline] 1,000 ml Med 08/18/18 09:15 Active IV STAT Medication Orders Sodium Chloride (Normal Saline) 1,000 mls @ 125 mls/hr IV STAT JOHNIE Last Admin: 08/18/18 09:35 Dose: 125 mls/hr Labs: Laboratory Tests 08/18/18 08/18/18 08/18/18 Range/Units 09:03 09:03 09:03 WBC 5.83 (4.0-11.0) K/uL RBC 3.95 L (4.30-5.90) M/uL Hgb 13.5 (12.0-16.0) g/dL Hct 40.6 (36.0-46.0) % MCV 102.8 H (80.0-98.0) fL MCH 34.2 H (27.0-32.0) pg MCHC 33.3 (31.0-37.0) g/dL RDW Std Deviation 53.1 (28.0-62.0) fl RDW Coeff of Rosalinda 14 (11.0-15.0) % Plt Count 252 (150-400) K/uL MPV 10.30 (7.40-12.00) fL Neut % (Auto) 61.5 (48.0-80.0) % Lymph % (Auto) 28.6 (16.0-40.0) % [place] % (Auto) 8.2 (0.0-15.0) % Eos % (Auto) 1.0 (0.0-7.0) % Baso % (Auto) 0.7 (0.0-1.5) % Neut # (Auto) 3.6 (1.4-5.7) K/uL Lymph # (Auto) 1.7 (0.6-2.4) K/uL [place] # (Auto) 0.5 (0.0-0.8) K/uL Eos # (Auto) 0.1 (0.0-0.7) K/uL Baso # (Auto) 0.0 (0.0-0.1) K/uL Nucleated RBC % 0.0 /100WBC Nucleated RBCs # 0 K/uL INR 1.06 Sodium 138 (136-145) mmol/L Potassium 3.7 (3.5-5.1) mmol/L Chloride 103 (98-107) mmol/L Carbon Dioxide 29.4 (21.0-32.0) mmol/L BUN 7 (7.0-18.0) mg/dL Creatinine 0.7 (0.6-1.0) mg/dL Est Cr Clr Drug Dosing TNP Estimated GFR (MDRD) > 60.0 ml/min Glucose 104 (74-106) mg/dL Calcium 8.5 (8.5-10.1) mg/dL Total Bilirubin 0.5 (0.2-1.0) mg/dL AST 26 (15-37) IU/L ALT 11 L (14-63) IU/L Alkaline Phosphatase 99 (46-116) U/L Ammonia (19-54) ug/dL Troponin I < 0.050 (0.000-0.056) ng/mL B-Natriuretic Peptide (<100) PG/ML Total Protein 6.8 (6.4-8.2) g/dL Albumin 2.1 L (3.4-5.0) g/dL Globulin 4.7 H (2.6-4.0) g/dL Albumin/Globulin Ratio 0.5 L (0.9-1.6) Amylase 19 L (25-115) U/L Lipase 69 L (73-393) U/L Ethyl Alcohol <3 mg/dL 08/18/18 08/18/18 Range/Units 09:03 09:03 WBC (4.0-11.0) K/uL RBC (4.30-5.90) M/uL Hgb (12.0-16.0) g/dL Hct (36.0-46.0) % MCV (80.0-98.0) fL MCH (27.0-32.0) pg MCHC (31.0-37.0) g/dL RDW Std Deviation (28.0-62.0) fl RDW Coeff of Rosalinda (11.0-15.0) % Plt Count (150-400) K/uL MPV (7.40-12.00) fL Neut % (Auto) (48.0-80.0) % Lymph % (Auto) (16.0-40.0) % [place] % (Auto) (0.0-15.0) % Eos % (Auto) (0.0-7.0) % Baso % (Auto) (0.0-1.5) % Neut # (Auto) (1.4-5.7) K/uL Lymph # (Auto) (0.6-2.4) K/uL [place] # (Auto) (0.0-0.8) K/uL Eos # (Auto) (0.0-0.7) K/uL Baso # (Auto) (0.0-0.1) K/uL Nucleated RBC % /100WBC Nucleated RBCs # K/uL INR Sodium (136-145) mmol/L Potassium (3.5-5.1) mmol/L Chloride (98-107) mmol/L Carbon Dioxide (21.0-32.0) mmol/L BUN (7.0-18.0) mg/dL Creatinine (0.6-1.0) mg/dL Est Cr Clr Drug Dosing Estimated GFR (MDRD) ml/min Glucose (74-106) mg/dL Calcium (8.5-10.1) mg/dL Total Bilirubin (0.2-1.0) mg/dL AST (15-37) IU/L ALT (14-63) IU/L Alkaline Phosphatase (46-116) U/L Ammonia 36 (19-54) ug/dL Troponin I (0.000-0.056) ng/mL B-Natriuretic Peptide 135 H (<100) PG/ML Total Protein (6.4-8.2) g/dL Albumin (3.4-5.0) g/dL Globulin (2.6-4.0) g/dL Albumin/Globulin Ratio (0.9-1.6) Amylase (25-115) U/L Lipase (73-393) U/L Ethyl Alcohol mg/dL Meds: Medications Generic Name Dose Route Start Last Admin Trade Name Freq PRN Reason Stop Dose Admin Sodium Chloride 1,000 mls @ 125 mls/hr 08/18/18 09:15 08/18/18 09:35 Normal Saline IV 125 mls/hr STAT JOHNIE Administration Discontinued Medications Generic Name Dose Route Start Last Admin Trade Name Freq PRN Reason Stop Dose Admin Iopamidol 100 ml 08/18/18 11:03 08/18/18 11:04 Isovue Multipack-370 (76%) IVPUSH 08/18/18 11:04 100 ml ONETIME STA Administration Departure - Departure Time of Disposition: 12:52 Disposition: Admitted As Inpatient 67 Condition: Good Clinical Impression: Ascites, Hepatic cirrhosis, Peripheral edema - Discharge Information Referrals: Ashanti Malone ENVIRONMENTAL COORDINATOR [Primary Care Provider] - Forms: ED Department Discharge - My Orders Last 24 Hours: My Active Orders 08/18/18 09:05 EKG Documentation Completion [RC] STAT Pulse Oximetry [RC] ASDIRECTED UA RFX LAURENT AND CULT IF INDIC [URIN] Stat 08/18/18 09:15 Sodium Chloride 0.9% [Normal Saline] 1,000 ml IV STAT - Assessment/Plan Last 24 Hours: My Active Orders 08/18/18 09:05 EKG Documentation Completion [RC] STAT Pulse Oximetry [RC] ASDIRECTED UA RFX LAURENT AND CULT IF INDIC [URIN] Stat 08/18/18 09:15 Sodium Chloride 0.9% [Normal Saline] 1,000 ml IV STAT
[2018-08-18] MEDS ORDERED: Sodium Chloride 0.9% 1,000 ML IV SCH (09:15)
[2018-08-18 09:40] LABS: CHLORIDE,CL 103 mmol/L (98-107); SODIUM,NA 138 mmol/L (136-145)
--- NOTE | 2018-08-18 09:59 | CR ---
EXAMINATION: Portable chest radiograph. HISTORY: Shortness of breath. FINDINGS: The trachea is midline. The cardiomediastinal silhouette is within normal limits. No pulmonary infiltrates, effusions or pneumothorax. Osseous structures appear unremarkable. IMPRESSION: No acute cardiopulmonary process.
[2018-08-18] MEDS ORDERED: Iopamidol 755 MG/ML 500 ML Multipack Bottle IVPUSH STA (11:03)
--- NOTE | 2018-08-18 12:06 | CT ---
CT of the abdomen and pelvis with contrast. HISTORY: Pain TECHNIQUE: Axial CT images were obtained of the abdomen and pelvis following administration of 100 mL of Isovue-370 in the left antecubital fossa without complication. Coronal and sagittal reconstructions obtained. FINDINGS: The lung bases are clear, no pleural effusion. The liver is heterogeneous and nodular in appearance. The spleen contains multiple small cysts. There are a few mildly prominent retroperitoneal lymph nodes noted, likely reactive. Cholecystectomy clips are present with changes secondary to a Whipple procedure. Portal and splenic veins are patent. The kidneys enhance and function symmetrically without evidence of obstructive uropathy. The large and small bowel are normal in caliber without evidence of obstruction. The appendix is normal. No bulky pelvic lymphadenopathy. The urinary bladder is minimally filled. Uterus is grossly unremarkable. No suspicious osseous abnormalities. Right total hip hardware demonstrated. IMPRESSION: 1. Hepatic cirrhosis with a large amount of abdominal ascites. 2. Multiple splenic cysts . 3. Status post Whipple.
--- NOTE | 2018-08-18 14:38 | PCM.HP ---
<Caio Goodeny - Last Filed: 08/18/18 17:14> H&P History of Present Illness - General Date of Service: 08/18/18 Admit Problem/Dx: Admission Diagnosis/Problem Admission Diagnosis/Problem Ascites - History of Present Illness Initial Comments - Free Text/Narative: The patient is a 58 year old female with of chronic pancreatitis for which she underwent Whipple procedure in 2014 and history of fatty liver who presented to the ER with increased abdominal and lower extremity edema. She thinks she has gained 20 lbs in the last few weeks. She notes abdominal pain due to increased fluid accumulation with associated nausea. She has diarrhea which is her normal state. She denies fever/chills, chest pain, shortness of breath. She reports history of edema in her lower extremities but it has never gone above her knees or into her abdomen. She has never had a paracentesis done before. In the ER, lab work showed no white count, no anemia, INR of 1.06, no elevation of LFTs, negative troponin, ammonia/amylase/lipase level within normal limits, low albumin, UA without sign of infection. In the ER, CXR showed no acute cardiopulmonary process and CT of abdomen pelvis showed hepatic cirrhosis, large amount of abdominal ascites, splenic cysts, and s/p whipple. She was started on IVF in the ER. Abdomen Pain Score (Numeric/FACES): 3 - Related Data Allergies/Adverse Reactions: Allergies Allergy/AdvReac Type Severity Reaction Status Date / Time oxycodone [From Percocet] Allergy Itching Verified 08/18/18 08:51 Home Medications: Home Meds Sertraline [Zoloft] 100 mg PO DAILY 01/16/16 [History] Amylase/Lipase/Protease [Alexei LARRY 24,000 Unit] 48,000 unit PO TIDMEALS 06/01/16 [History] Hydrocodone/Acetaminophen [Lortab 10-325 mg Tablet] 1 tab PO Q8H PRN 06/01/16 [ History] Ondansetron HCl [Ondansetron] 4 mg PO TID PRN 06/01/16 [History] Melatonin 5 mg PO BEDTIME 08/18/18 [History] Metoprolol Succinate [Toprol XL 100mg] 100 mg PO DAILY 08/18/18 [History] Omeprazole 40 mg PO DAILY 08/18/18 [History] Past Medical History - Past Health History Medical/Surgical History: Denies Medical/Surgical History HEENT History: Reports: None Cardiovascular History: Reports: Hypertension Respiratory History: Reports: None Gastrointestinal History: Reports: GERD, Pancreatitis Other Gastrointestinal History: fatty liver Genitourinary History: Reports: None CERTIFIED 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 ENGINEER History: Reports: None Musculoskeletal History: Reports: Arthritis Neurological History: Reports: None Psychiatric History: Reports: Anxiety, Depression Endocrine/Metabolic History: Reports: None Hematologic History: Reports: None Immunologic History: Reports: None Oncologic (Cancer) History: Reports: None Dermatologic History: Reports: None - Infectious Disease History Infectious Disease History: Reports: Chicken Pox - Past Surgical History Head Surgeries/Procedures: Reports: None HEENT Surgical History: Reports: Cataract Surgery Cardiovascular Surgical History: Reports: None Respiratory Surgical History: Reports: None GI Surgical History: Reports: Cholecystectomy, EGD Other GI Surgeries/Procedures: hx of whipple procedure done in August of 2014 Female Surgical History: Reports: None Endocrine Surgical History: Reports: None Musculoskeletal Surgical History: Reports: Hip Replacement Dermatological Surgical History: Reports: None Social & Family History - Family History Family Medical History: Noncontributory - Tobacco Use Smoking Status *Q: Former Smoker Used Tobacco, but Quit: Yes Month/Year Tobacco Last Used: 2017 - Caffeine Use Caffeine Use: Reports: None - Recreational Drug Use Recreational Drug Use: No H&P Review of Systems - Review of Systems: Review Of Systems: See Below General: Reports: No Symptoms HEENT: Reports: No Symptoms Pulmonary: Reports: No Symptoms Cardiovascular: Reports: No Symptoms Gastrointestinal: Reports: Abdominal Pain, Nausea Genitourinary: Reports: No Symptoms Musculoskeletal: Reports: No Symptoms Skin: Reports: No Symptoms Psychiatric: Reports: No Symptoms Neurological: Reports: No Symptoms Hematologic/Lymphatic: Reports: No Symptoms Immunologic: Reports: No Symptoms Exam - Exam Exam: See Below - Vital Signs Vital Signs: Last Vital Signs Temp 97.1 F 08/18/18 08:53 Pulse 70 08/18/18 12:30 Resp 16 08/18/18 12:30 BP 96/62 08/18/18 12:30 Pulse Ox 96 08/18/18 12:30 Weight: 87.543 kg - Exam General: Alert, Oriented, Cooperative HEENT: Conjunctiva Clear, EOMI, Mucosa Moist & [place], Posterior Pharynx Clear, Pupils Equal, Pupils Reactive Neck: Supple, Trachea Midline Lungs: Clear to Auscultation, Normal Respiratory Effort Cardiovascular: Regular Rate, Regular Rhythm GI/Abdominal Exam: Normal Bowel Sounds, Soft, Non-Tender, Distended (with fluid wave) Extremities: Pedal Edema Skin: Warm, Dry Neuro Extensive - Mental Status: Alert, Oriented x3 Psychiatric: Alert, Normal Affect, Normal Mood - Patient Data Lab Results Last 24 hrs: Laboratory Results - last 24 hr 08/18/18 08/18/18 08/18/18 Range/Units 09:03 09:03 09:03 WBC 5.83 (4.0-11.0) K/uL RBC 3.95 L (4.30-5.90) M/uL Hgb 13.5 (12.0-16.0) g/dL Hct 40.6 (36.0-46.0) % MCV 102.8 H (80.0-98.0) fL MCH 34.2 H (27.0-32.0) pg MCHC 33.3 (31.0-37.0) g/dL RDW Std Deviation 53.1 (28.0-62.0) fl RDW Coeff of Rosalinda 14 (11.0-15.0) % Plt Count 252 (150-400) K/uL MPV 10.30 (7.40-12.00) fL Neut % (Auto) 61.5 (48.0-80.0) % Lymph % (Auto) 28.6 (16.0-40.0) % [place] % (Auto) 8.2 (0.0-15.0) % Eos % (Auto) 1.0 (0.0-7.0) % Baso % (Auto) 0.7 (0.0-1.5) % Neut # (Auto) 3.6 (1.4-5.7) K/uL Lymph # (Auto) 1.7 (0.6-2.4) K/uL [place] # (Auto) 0.5 (0.0-0.8) K/uL Eos # (Auto) 0.1 (0.0-0.7) K/uL Baso # (Auto) 0.0 (0.0-0.1) K/uL Nucleated RBC % 0.0 /100WBC Nucleated RBCs # 0 K/uL INR 1.06 Sodium 138 (136-145) mmol/L Potassium 3.7 (3.5-5.1) mmol/L Chloride 103 (98-107) mmol/L Carbon Dioxide 29.4 (21.0-32.0) mmol/L BUN 7 (7.0-18.0) mg/dL Creatinine 0.7 (0.6-1.0) mg/dL Est Cr Clr Drug Dosing TNP Estimated GFR (MDRD) > 60.0 ml/min Glucose 104 (74-106) mg/dL Calcium 8.5 (8.5-10.1) mg/dL Total Bilirubin 0.5 (0.2-1.0) mg/dL AST 26 (15-37) IU/L ALT 11 L (14-63) IU/L Alkaline Phosphatase 99 (46-116) U/L Ammonia (19-54) ug/dL Troponin I < 0.050 (0.000-0.056) ng/mL B-Natriuretic Peptide (<100) PG/ML Total Protein 6.8 (6.4-8.2) g/dL Albumin 2.1 L (3.4-5.0) g/dL Globulin 4.7 H (2.6-4.0) g/dL Albumin/Globulin Ratio 0.5 L (0.9-1.6) Amylase 19 L (25-115) U/L Lipase 69 L (73-393) U/L Urine Color Urine Appearance Urine pH (5.0-8.0) Ur Specific [place] (1.001-1.035) Urine Protein (NEGATIVE) mg/dL Urine Glucose (UA) (NEGATIVE) mg/dL Urine Ketones (NEGATIVE) mg/dL Urine Occult Blood (NEGATIVE) Urine Nitrite (NEGATIVE) Urine Bilirubin (NEGATIVE) Urine Urobilinogen (<2.0) EU/dL Ur Leukocyte Esterase (NEGATIVE) Ethyl Alcohol <3 mg/dL 08/18/18 08/18/18 08/18/18 Range/Units 09:03 09:03 12:45 WBC (4.0-11.0) K/uL RBC (4.30-5.90) M/uL Hgb (12.0-16.0) g/dL Hct (36.0-46.0) % MCV (80.0-98.0) fL MCH (27.0-32.0) pg MCHC (31.0-37.0) g/dL RDW Std Deviation (28.0-62.0) fl RDW Coeff of Rosalinda (11.0-15.0) % Plt Count (150-400) K/uL MPV (7.40-12.00) fL Neut % (Auto) (48.0-80.0) % Lymph % (Auto) (16.0-40.0) % [place] % (Auto) (0.0-15.0) % Eos % (Auto) (0.0-7.0) % Baso % (Auto) (0.0-1.5) % Neut # (Auto) (1.4-5.7) K/uL Lymph # (Auto) (0.6-2.4) K/uL [place] # (Auto) (0.0-0.8) K/uL Eos # (Auto) (0.0-0.7) K/uL Baso # (Auto) (0.0-0.1) K/uL Nucleated RBC % /100WBC Nucleated RBCs # K/uL INR Sodium (136-145) mmol/L Potassium (3.5-5.1) mmol/L Chloride (98-107) mmol/L Carbon Dioxide (21.0-32.0) mmol/L BUN (7.0-18.0) mg/dL Creatinine (0.6-1.0) mg/dL Est Cr Clr Drug Dosing Estimated GFR (MDRD) ml/min Glucose (74-106) mg/dL Calcium (8.5-10.1) mg/dL Total Bilirubin (0.2-1.0) mg/dL AST (15-37) IU/L ALT (14-63) IU/L Alkaline Phosphatase (46-116) U/L Ammonia 36 (19-54) ug/dL Troponin I (0.000-0.056) ng/mL B-Natriuretic Peptide 135 H (<100) PG/ML Total Protein (6.4-8.2) g/dL Albumin (3.4-5.0) g/dL Globulin (2.6-4.0) g/dL Albumin/Globulin Ratio (0.9-1.6) Amylase (25-115) U/L Lipase (73-393) U/L Urine Color YELLOW Urine Appearance CLEAR Urine pH 5.0 (5.0-8.0) Ur Specific [place] <= 1.005 (1.001-1.035) Urine Protein NEGATIVE (NEGATIVE) mg/dL Urine Glucose (UA) NEGATIVE (NEGATIVE) mg/dL Urine Ketones NEGATIVE (NEGATIVE) mg/dL Urine Occult Blood NEGATIVE (NEGATIVE) Urine Nitrite NEGATIVE (NEGATIVE) Urine Bilirubin NEGATIVE (NEGATIVE) Urine Urobilinogen 0.2 (<2.0) EU/dL Ur Leukocyte Esterase NEGATIVE (NEGATIVE) Ethyl Alcohol mg/dL Result Diagrams: 08/18/18 09:03 08/18/18 09:03 - Problem List (1) Status post abdominal paracentesis SNOMED Code(s): 352702161 ICD Code: Z98.890 - OTHER SPECIFIED POSTPROCEDURAL STATES Status: Acute Current Visit: Yes (2) Ascites SNOMED Code(s): 530215034 ICD Code: R18.8 - OTHER ASCITES Status: Acute Current Visit: Yes (3) Hepatic cirrhosis SNOMED Code(s): 58067896 ICD Code: K74.60 - UNSPECIFIED CIRRHOSIS OF LIVER Status: Acute Current Visit: Yes (4) GERD (gastroesophageal reflux disease) SNOMED Code(s): 136974163 ICD Code: K21.9 - GASTRO-ESOPHAGEAL REFLUX DISEASE WITHOUT ESOPHAGITIS Status: Chronic Current Visit: No (5) HTN (hypertension) SNOMED Code(s): 33993735 ICD Code: I10 - ESSENTIAL (PRIMARY) HYPERTENSION Status: Chronic Current Visit: No Problem List Initiated/Reviewed/Updated: Yes Orders Last 24hrs: Active Orders 24 hr Category Date Time Status Patient Status [ADT] Stat ADT 08/18/18 12:53 Active EKG Documentation Completion [RC] STAT Care 08/18/18 09:05 Active Pulse Oximetry [RC] ASDIRECTED Care 08/18/18 09:05 Active Guidance Paracentesis [US] Urgent Exams 08/18/18 14:24 Ordered ALBUMIN,BODY FLUID [BF] Stat Lab 08/18/18 14:31 Ordered AMYLASE,BODY FLUID [BF] Stat Lab 08/18/18 14:31 Ordered CELL COUNT,BODY FLUID [BF] Stat Lab 08/18/18 14:31 Ordered CULTURE BODY FLUID + SMEAR [RM] Stat Lab 08/18/18 14:31 Ordered GLUCOSE,BODY FLUID [BF] Stat Lab 08/18/18 14:31 Ordered GRAM STAIN [RM] Stat Lab 08/18/18 14:31 Ordered LACTATE DEHYDROGENASE,BODY FL [BF] Stat Lab 08/18/18 14:31 Ordered LACTATE DEHYDROGENASE,LDH [CHEM] Stat Lab 08/18/18 14:36 Ordered PROTEIN,BODY FLUID [BF] Stat Lab 08/18/18 14:31 Ordered TRIGLYCERIDES,BODY FLUID [BF] Stat Lab 08/18/18 14:31 Ordered Assessment/Plan Comment:: 1. Admit for observation 2. Code status- full 3.Vitals per routine 4. I/Os strict 5. Diet-low salt and fluid restriction 6. DVT prophylaxis with SCD 7. Abdominal ascites with liver cirrhosis- patient underwent paracentesis and they removed 11 L of fluid, fluid studies pending. We will replace with 5o grams of albumin. Patient will be on fluid and sodium restriction 8. Chronic conditions- HTN, GERD, depression- continue home meds <Agusto Raya M - Last Filed: 08/18/18 18:29> H&P History of Present Illness - General Admit Problem/Dx: Admission Diagnosis/Problem Admission Diagnosis/Problem Ascites - History of Present Illness Initial Comments - Free Text/Narative: I have seen and examined the patient independently of medical territory manager, Elsie Gooden MD. I have discussed the case with her. I have reviewed and agree with the assessment and plan of care for the patient as outlined by her. Please see orders. Paracentesis completed. Patient likely go home tomorrow. Exam - Vital Signs Vital Signs: Last Vital Signs Temp 36.4 C 08/18/18 15:00 Pulse 64 08/18/18 15:00 Resp 20 08/18/18 15:00 BP 111/59 L 08/18/18 15:00 Pulse Ox 96 08/18/18 15:00 - Patient Data Lab Results Last 24 hrs: Laboratory Results - last 24 hr 08/18/18 08/18/18 08/18/18 Range/Units 09:03 09:03 09:03 WBC 5.83 (4.0-11.0) K/uL RBC 3.95 L (4.30-5.90) M/uL Hgb 13.5 (12.0-16.0) g/dL Hct 40.6 (36.0-46.0) % MCV 102.8 H (80.0-98.0) fL MCH 34.2 H (27.0-32.0) pg MCHC 33.3 (31.0-37.0) g/dL RDW Std Deviation 53.1 (28.0-62.0) fl RDW Coeff of Rosalinda 14 (11.0-15.0) % Plt Count 252 (150-400) K/uL MPV 10.30 (7.40-12.00) fL Neut % (Auto) 61.5 (48.0-80.0) % Lymph % (Auto) 28.6 (16.0-40.0) % [place] % (Auto) 8.2 (0.0-15.0) % Eos % (Auto) 1.0 (0.0-7.0) % Baso % (Auto) 0.7 (0.0-1.5) % Neut # (Auto) 3.6 (1.4-5.7) K/uL Lymph # (Auto) 1.7 (0.6-2.4) K/uL [place] # (Auto) 0.5 (0.0-0.8) K/uL Eos # (Auto) 0.1 (0.0-0.7) K/uL Baso # (Auto) 0.0 (0.0-0.1) K/uL Nucleated RBC % 0.0 /100WBC Nucleated RBCs # 0 K/uL INR 1.06 Sodium 138 (136-145) mmol/L Potassium 3.7 (3.5-5.1) mmol/L Chloride 103 (98-107) mmol/L Carbon Dioxide 29.4 (21.0-32.0) mmol/L BUN 7 (7.0-18.0) mg/dL Creatinine 0.7 (0.6-1.0) mg/dL Est Cr Clr Drug Dosing TNP Estimated GFR (MDRD) > 60.0 ml/min Glucose 104 (74-106) mg/dL Calcium 8.5 (8.5-10.1) mg/dL Total Bilirubin 0.5 (0.2-1.0) mg/dL AST 26 (15-37) IU/L ALT 11 L (14-63) IU/L Alkaline Phosphatase 99 (46-116) U/L Ammonia (19-54) ug/dL Lactate Dehydrogenase (81-234) U/L Troponin I < 0.050 (0.000-0.056) ng/mL B-Natriuretic Peptide (<100) PG/ML Total Protein 6.8 (6.4-8.2) g/dL Albumin 2.1 L (3.4-5.0) g/dL Globulin 4.7 H (2.6-4.0) g/dL Albumin/Globulin Ratio 0.5 L (0.9-1.6) Amylase 19 L (25-115) U/L Lipase 69 L (73-393) U/L Urine Color Urine Appearance Urine pH (5.0-8.0) Ur Specific [place] (1.001-1.035) Urine Protein (NEGATIVE) mg/dL Urine Glucose (UA) (NEGATIVE) mg/dL Urine Ketones (NEGATIVE) mg/dL Urine Occult Blood (NEGATIVE) Urine Nitrite (NEGATIVE) Urine Bilirubin (NEGATIVE) Urine Urobilinogen (<2.0) EU/dL Ur Leukocyte Esterase (NEGATIVE) Fluid Type Fluid Color Fluid Appearance Fluid WBC K/uL Fluid RBC M/uL Fluid Mononuclear Cell % Fl Polymorphonucl Cell % Fluid Glucose mg/dL Fluid Total Protein g/dL Fluid Albumin g/dL Fluid LDH U/L Fluid Amylase U/L Fluid Triglycerides mg/dL Ethyl Alcohol <3 mg/dL 08/18/18 08/18/18 08/18/18 Range/Units 09:03 09:03 09:03 WBC (4.0-11.0) K/uL RBC (4.30-5.90) M/uL Hgb (12.0-16.0) g/dL Hct (36.0-46.0) % MCV (80.0-98.0) fL MCH (27.0-32.0) pg MCHC (31.0-37.0) g/dL RDW Std Deviation (28.0-62.0) fl RDW Coeff of [place] (11.0-15.0) % Plt Count (150-400) K/uL MPV (7.40-12.00) fL Neut % (Auto) (48.0-80.0) % Lymph % (Auto) (16.0-40.0) % [place] % (Auto) (0.0-15.0) % Eos % (Auto) (0.0-7.0) % Baso % (Auto) (0.0-1.5) % Neut # (Auto) (1.4-5.7) K/uL Lymph # (Auto) (0.6-2.4) K/uL [place] # (Auto) (0.0-0.8) K/uL Eos # (Auto) (0.0-0.7) K/uL Baso # (Auto) (0.0-0.1) K/uL Nucleated RBC % /100WBC Nucleated RBCs # K/uL INR Sodium (136-145) mmol/L Potassium (3.5-5.1) mmol/L Chloride (98-107) mmol/L Carbon Dioxide (21.0-32.0) mmol/L BUN (7.0-18.0) mg/dL Creatinine (0.6-1.0) mg/dL Est Cr Clr Drug Dosing Estimated GFR (MDRD) ml/min Glucose (74-106) mg/dL Calcium (8.5-10.1) mg/dL Total Bilirubin (0.2-1.0) mg/dL AST (15-37) IU/L ALT (14-63) IU/L Alkaline Phosphatase (46-116) U/L Ammonia 36 (19-54) ug/dL Lactate Dehydrogenase 228 (81-234) U/L Troponin I (0.000-0.056) ng/mL B-Natriuretic Peptide 135 H (<100) PG/ML Total Protein (6.4-8.2) g/dL Albumin (3.4-5.0) g/dL Globulin (2.6-4.0) g/dL Albumin/Globulin Ratio (0.9-1.6) Amylase (25-115) U/L Lipase (73-393) U/L Urine Color Urine Appearance Urine pH (5.0-8.0) Ur Specific [place] (1.001-1.035) Urine Protein (NEGATIVE) mg/dL Urine Glucose (UA) (NEGATIVE) mg/dL Urine Ketones (NEGATIVE) mg/dL Urine Occult Blood (NEGATIVE) Urine Nitrite (NEGATIVE) Urine Bilirubin (NEGATIVE) Urine Urobilinogen (<2.0) EU/dL Ur Leukocyte Esterase (NEGATIVE) Fluid Type Fluid Color Fluid Appearance Fluid WBC K/uL Fluid RBC M/uL Fluid Mononuclear Cell % Fl Polymorphonucl Cell % Fluid Glucose mg/dL Fluid Total Protein g/dL Fluid Albumin g/dL Fluid LDH U/L Fluid Amylase U/L Fluid Triglycerides mg/dL Ethyl Alcohol mg/dL 08/18/18 08/18/18 Range/Units 12:45 16:05 WBC (4.0-11.0) K/uL RBC (4.30-5.90) M/uL Hgb (12.0-16.0) g/dL Hct (36.0-46.0) % MCV (80.0-98.0) fL MCH (27.0-32.0) pg MCHC (31.0-37.0) g/dL RDW Std Deviation (28.0-62.0) fl RDW Coeff of [place] (11.0-15.0) % Plt Count (150-400) K/uL MPV (7.40-12.00) fL Neut % (Auto) (48.0-80.0) % Lymph % (Auto) (16.0-40.0) % [place] % (Auto) (0.0-15.0) % Eos % (Auto) (0.0-7.0) % Baso % (Auto) (0.0-1.5) % Neut # (Auto) (1.4-5.7) K/uL Lymph # (Auto) (0.6-2.4) K/uL [place] # (Auto) (0.0-0.8) K/uL Eos # (Auto) (0.0-0.7) K/uL Baso # (Auto) (0.0-0.1) K/uL Nucleated RBC % /100WBC Nucleated RBCs # K/uL INR Sodium (136-145) mmol/L Potassium (3.5-5.1) mmol/L Chloride (98-107) mmol/L Carbon Dioxide (21.0-32.0) mmol/L BUN (7.0-18.0) mg/dL Creatinine (0.6-1.0) mg/dL Est Cr Clr Drug Dosing Estimated GFR (MDRD) ml/min Glucose (74-106) mg/dL Calcium (8.5-10.1) mg/dL Total Bilirubin (0.2-1.0) mg/dL AST (15-37) IU/L ALT (14-63) IU/L Alkaline Phosphatase (46-116) U/L Ammonia (19-54) ug/dL Lactate Dehydrogenase (81-234) U/L Troponin I (0.000-0.056) ng/mL B-Natriuretic Peptide (<100) PG/ML Total Protein (6.4-8.2) g/dL Albumin (3.4-5.0) g/dL Globulin (2.6-4.0) g/dL Albumin/Globulin Ratio (0.9-1.6) Amylase (25-115) U/L Lipase (73-393) U/L Urine Color YELLOW Urine Appearance CLEAR Urine pH 5.0 (5.0-8.0) Ur Specific [place] <= 1.005 (1.001-1.035) Urine Protein NEGATIVE (NEGATIVE) mg/dL Urine Glucose (UA) NEGATIVE (NEGATIVE) mg/dL Urine Ketones NEGATIVE (NEGATIVE) mg/dL Urine Occult Blood NEGATIVE (NEGATIVE) Urine Nitrite NEGATIVE (NEGATIVE) Urine Bilirubin NEGATIVE (NEGATIVE) Urine Urobilinogen 0.2 (<2.0) EU/dL Ur Leukocyte Esterase NEGATIVE (NEGATIVE) Fluid Type PER Fluid Color YELLOW Fluid Appearance CLOUDY Fluid WBC 0.25 K/uL Fluid RBC 0.00 M/uL Fluid Mononuclear Cell 92.5 % Fl Polymorphonucl Cell 7.5 % Fluid Glucose 89 mg/dL Fluid Total Protein 2.2 g/dL Fluid Albumin 0.8 g/dL Fluid LDH 54 U/L Fluid Amylase 8 U/L Fluid Triglycerides 21 mg/dL Ethyl Alcohol mg/dL Result Diagrams: 08/18/18 09:03 08/18/18 09:03 Orders Last 24hrs: Active Orders 24 hr Category Date Time Status Patient Status [ADT] Stat ADT 08/18/18 12:53 Active Antiembolic Devices [RC] PER UNIT ROUTINE Care 08/18/18 17:11 Active EKG Documentation Completion [RC] STAT Care 08/18/18 09:05 Active Intake and Output Strict [RC] Q12H Care 08/18/18 15:07 Active Pulse Oximetry [RC] ASDIRECTED Care 08/18/18 09:05 Active Vital Signs [RC] Q4H Care 08/18/18 15:07 Active 2 Gram Sodium Diet [DIET] Diet 08/18/18 Dinner Active Fluid Restriction [DIET] Diet 08/18/18 Dinner Active Guidance Paracentesis [US] Urgent Exams 08/18/18 14:24 Taken CBC WITH AUTO DIFF [HEME] AM Lab 08/19/18 05:11 Ordered COMPREHENSIVE METABOLIC PN,CMP [CHEM] AM Lab 08/19/18 05:11 Ordered CULTURE BODY FLUID + SMEAR [RM] Stat Lab 08/18/18 14:31 Ordered GRAM STAIN [RM] Stat Lab 08/18/18 14:31 Ordered Acetaminophen/HYDROcodone [[place] 325-10 MG] Med 08/18/18 17:13 Active 1 tab PO Q8H PRN Albumin 25% [Flexbumin 25%] Med 08/18/18 18:10 Active 12.5 gm in 50 ml IV ONETIME Albumin 25% [Flexbumin 25%] Med 08/18/18 18:42 Active 12.5 gm in 50 ml IV ONETIME Melatonin Med 08/18/18 21:00 Active 3 mg PO BEDTIME Metoprolol Succinate [Toprol XL] Med 08/19/18 09:00 Active 100 mg PO DAILY Omeprazole Med 08/19/18 07:30 Active 40 mg PO ACBRK Ondansetron [Zofran] Med 08/18/18 17:17 Active 4 mg IVPUSH Q4H PRN Patient's Own Medication [Ptom] Med 08/18/18 17:30 Active 2 each PO TIDMEALS Sertraline [Zoloft] Med 08/19/18 09:00 Active 100 mg PO DAILY SCD [Sequential Compression Device] [OM.PC] Routine Oth 08/18/18 17:11 Ordered Resuscitation Status Routine Resus Stat 08/18/18 15:07 Ordered Medication Orders Hydrocodone Bitart/Acetaminophen ([place] 325-10 Mg) 1 tab PO Q8H PRN PRN Reason: Pain Albumin Human (Flexbumin 25%) 12.5 gm in 50 mls @ 100 mls/hr IV ONETIME ONE Stop: 08/18/18 18:39 Albumin Human (Flexbumin 25%) 12.5 gm in 50 mls @ 100 mls/hr IV ONETIME ONE Stop: 08/18/18 19:11 Melatonin (Melatonin) 3 mg PO BEDTIME JOHNIE Metoprolol Succinate (Toprol Xl) 100 mg PO DAILY [facility] Omeprazole (Omeprazole) 40 mg PO ACBRK JOHNIE Ondansetron HCl (Zofran) 4 mg IVPUSH Q4H PRN PRN Reason: Nausea/Vomiting Amylase/Lipase/Protease 24,000 Unit Cap.Cr 2 each PO TIDMEALS [facility] Sertraline HCl (Zoloft) 100 mg PO DAILY JOHNIE
[2018-08-18] MEDS ORDERED: Albumin 25% 12.5 GM/50 ML BAG IV ONE ×4 (17:09→18:42)
[2018-08-18] MEDS ORDERED: Acetaminophen/HYDROcodone 325-10 MG Tab PO PRN (17:13)
[2018-08-18] MEDS ORDERED: Ondansetron 4 MG/2 ML SDV IVPUSH PRN (17:17)
[2018-08-18] MEDS: Amylase/Lipase/Protease 24,000 Unit Cap.CR PO SCH (19:14)
[2018-08-18] MEDS ORDERED: Metoprolol Succinate 100 MG Tab.ER PO SCH (21:00)
[2018-08-18] MEDS ORDERED: Melatonin 3 MG Tab PO SCH (21:00)
[2018-08-19 07:02] LABS: CHLORIDE,CL 107 mmol/L (98-107); SODIUM,NA 144 mmol/L (136-145)
[2018-08-19] MEDS ORDERED: Omeprazole 20 MG Cap.CR PO SCH (07:30)
[2018-08-19 08:13] VITALS: BP 94/56
[2018-08-19] MEDS: Amylase/Lipase/Protease 24,000 Unit Cap.CR PO SCH (08:53)
[2018-08-19] MEDS ORDERED: Metoprolol Succinate 100 MG Tab.ER PO SCH (09:00)
[2018-08-19] MEDS ORDERED: Sertraline 100 MG Tab PO SCH (09:00)
--- NOTE | 2018-08-19 09:04 | PCM.DCSUM1 ---
<Elsie Gooden - Last Filed: 08/19/18 09:52> Discharge Summary - Hospital Course Free Text/Narrative:: Admission Date: 08/18/18 Discharge Date: 08/19/18 Admission Diagnosis: 1. Abdominal ascites likely secondary to liver cirrhosis 2. Chronic conditions- HTN, GERD, and depression Discharge Diagnosis: 1. Abdominal ascites likely secondary to liver cirrhosis s/p paracentesis 2. Chronic conditions- HTN, GERD, and depression Procedures: Paracentesis Consults: Radiology Hospital Course: The patient is a 58-year-old female who presented to the ER with increased abdominal girth and swelling in the lower extremities. She has past medical history of chronic pancreatitis for which she underwent a Whipple procedure. She was told in the past that she had fatty liver disease. In the ER workup showed no elevation in her LFTs, but she did have a low albumin. Chest x-ray showed no acute cardiopulmonary process. A CT of the abdomen and pelvis showed large amount of abdominal ascites with anasarca and liver cirrhosis She was admitted to the medical surgical floor for observation. Dr. Mata of radiology did perform a paracentesis draining 11 L of fluid off of her abdomen. Her fluid studies were sent and no sign of infection. Ctyology pending. Her SAAG was 1.3, meaning her ascites is likely due to her liver cirrhosis. After paracentesis, she received IV albumin. By the next day, the patient reports that she was feeling much better and was ready to go home. She already sees a GI specialist at [place]. She will contact them early next week and update them on what's going on. The patient will be sent home on Lasix to help with edema. We discussed increasing her dietary potassium. Her primary care provider will need to check lab work to make sure she is not dropping in potassium. Disposition: Home Discharge Condition: Vitals stable, tolerating oral diet, ambulating without difficulty, edema improved. Discharge Instructions: low salt diet, activity as tolerated, may drive, may shower. Symptoms to report to a provider include fever/chills, chest pain, shortness of breath, abdominal pain, increased swelling, drainage/discharge, erythema, or not improving as expected. Discharge Medications: Sertraline [Zoloft] 100 mg PO DAILY Amylase/Lipase/Protease [Alexei LARRY 24,000 Unit] 48,000 unit PO TIDMEALS Hydrocodone/Acetaminophen [Lortab 10-325 mg Tablet] 1 tab PO Q8H PRN Ondansetron HCl [Ondansetron] 4 mg PO TID PRN Melatonin 5 mg PO BEDTIME Metoprolol Succinate [Toprol XL 100mg] 100 mg PO DAILY Omeprazole 40 mg PO DAILY New Medications: Furosemide [Lasix] 20 mg PO DAILY Follow-up: 1. PCP- Ashanti Malone 2. GI specialist- contact your specialist at [place]. Diagnosis: Stroke: No - Discharge Data Discharge Date: 08/19/18 Discharge Disposition: Home, Self-Care 01 Condition: Stable - Discharge Diagnosis/Problem(s) (1) Status post abdominal paracentesis SNOMED Code(s): 857954892 ICD Code: Z98.890 - OTHER SPECIFIED POSTPROCEDURAL STATES Status: Acute (2) Ascites SNOMED Code(s): 908963511 ICD Code: R18.8 - OTHER ASCITES Status: Acute (3) Hepatic cirrhosis SNOMED Code(s): 32263296 ICD Code: K74.60 - UNSPECIFIED CIRRHOSIS OF LIVER Status: Acute (4) GERD (gastroesophageal reflux disease) SNOMED Code(s): 763290372 ICD Code: K21.9 - GASTRO-ESOPHAGEAL REFLUX DISEASE WITHOUT ESOPHAGITIS Status: Chronic (5) HTN (hypertension) SNOMED Code(s): 17434570 ICD Code: I10 - ESSENTIAL (PRIMARY) HYPERTENSION Status: Chronic - Patient Instructions Diet: Low Sodium, Fluid Restriction Fluid Restriction: 2000 mL Activity: As Tolerated Driving: May Drive Today Showering/Bathing: May Shower Notify Provider of: Fever, Increased Pain, Swelling and Redness, Drainage, Nausea and/or Vomiting Other/Special Instructions: Additional symptoms include chest pain, shortness of breath, or abdominal pain. Please follow up with your GI specialist. - Discharge Plan *PRESCRIPTION DRUG MONITORING PROGRAM REVIEWED*: No *COPY OF PRESCRIPTION DRUG MONITORING REPORT IN PATIENT SAIMA: No Prescriptions/Med Rec: Furosemide [Lasix] 20 mg PO DAILY 14 Days #14 tablet Home Medications: Home Meds Sertraline [Zoloft] 100 mg PO DAILY 01/16/16 [History] Amylase/Lipase/Protease [Alexei LARRY 24,000 Unit] 48,000 unit PO TIDMEALS 06/01/16 [History] Hydrocodone/Acetaminophen [Lortab 10-325 mg Tablet] 1 tab PO Q8H PRN 06/01/16 [ History] Ondansetron HCl [Ondansetron] 4 mg PO TID PRN 06/01/16 [History] Melatonin 5 mg PO BEDTIME 08/18/18 [History] Metoprolol Succinate [Toprol XL 100mg] 100 mg PO DAILY 08/18/18 [History] Omeprazole 40 mg PO DAILY 08/18/18 [History] Furosemide [Lasix] 20 mg PO DAILY 14 Days #14 tablet 08/19/18 [Rx] Patient Handouts: Furosemide tablets, Paracentesis, Care After, Ascites Referrals: Ashanti Malone [employer] [Primary Care Provider] - (Call PCP on Tuesday08/21/18 to schedule a hospital follow-up appointment for 1 to 2 weeks from discharge date) - Discharge Summary/Plan Comment DC Time >30 min.: No - Patient Data Vitals - Most Recent: Last Vital Signs Temp 98.3 F 08/19/18 08:00 Pulse 64 08/19/18 08:00 Resp 16 08/19/18 08:00 BP 94/56 L 08/19/18 08:00 Pulse Ox 94 L 08/19/18 08:00 Weight - Most Recent: 168.5 kg I&O - Last 24 hours: Intake & Output 08/18/18 08/19/18 08/19/18 22:59 06:59 14:59 Intake Total 262 750 Output Total 0 900 Balance 262 -150 Lab Results - Last 24 hrs: Laboratory Results - last 24 hr 08/18/18 08/18/18 08/18/18 Range/Units 09:03 09:03 09:03 WBC 5.83 (4.0-11.0) K/uL RBC 3.95 L (4.30-5.90) M/uL Hgb 13.5 (12.0-16.0) g/dL Hct 40.6 (36.0-46.0) % MCV 102.8 H (80.0-98.0) fL MCH 34.2 H (27.0-32.0) pg MCHC 33.3 (31.0-37.0) g/dL RDW Std Deviation 53.1 (28.0-62.0) fl RDW Coeff of Rosalinda 14 (11.0-15.0) % Plt Count 252 (150-400) K/uL MPV 10.30 (7.40-12.00) fL Neut % (Auto) 61.5 (48.0-80.0) % Lymph % (Auto) 28.6 (16.0-40.0) % [place] % (Auto) 8.2 (0.0-15.0) % Eos % (Auto) 1.0 (0.0-7.0) % Baso % (Auto) 0.7 (0.0-1.5) % Neut # (Auto) 3.6 (1.4-5.7) K/uL Lymph # (Auto) 1.7 (0.6-2.4) K/uL [place] # (Auto) 0.5 (0.0-0.8) K/uL Eos # (Auto) 0.1 (0.0-0.7) K/uL Baso # (Auto) 0.0 (0.0-0.1) K/uL Nucleated RBC % 0.0 /100WBC Nucleated RBCs # 0 K/uL INR 1.06 Sodium 138 (136-145) mmol/L Potassium 3.7 (3.5-5.1) mmol/L Chloride 103 (98-107) mmol/L Carbon Dioxide 29.4 (21.0-32.0) mmol/L BUN 7 (7.0-18.0) mg/dL Creatinine 0.7 (0.6-1.0) mg/dL Est Cr Clr Drug Dosing TNP Estimated GFR (MDRD) > 60.0 ml/min Glucose 104 (74-106) mg/dL Calcium 8.5 (8.5-10.1) mg/dL Total Bilirubin 0.5 (0.2-1.0) mg/dL AST 26 (15-37) IU/L ALT 11 L (14-63) IU/L Alkaline Phosphatase 99 (46-116) U/L Ammonia (19-54) ug/dL Lactate Dehydrogenase (81-234) U/L Troponin I < 0.050 (0.000-0.056) ng/mL B-Natriuretic Peptide (<100) PG/ML Total Protein 6.8 (6.4-8.2) g/dL Albumin 2.1 L (3.4-5.0) g/dL Globulin 4.7 H (2.6-4.0) g/dL Albumin/Globulin Ratio 0.5 L (0.9-1.6) Amylase 19 L (25-115) U/L Lipase 69 L (73-393) U/L Urine Color Urine Appearance Urine pH (5.0-8.0) Ur Specific [place] (1.001-1.035) Urine Protein (NEGATIVE) mg/dL Urine Glucose (UA) (NEGATIVE) mg/dL Urine Ketones (NEGATIVE) mg/dL Urine Occult Blood (NEGATIVE) Urine Nitrite (NEGATIVE) Urine Bilirubin (NEGATIVE) Urine Urobilinogen (<2.0) EU/dL Ur Leukocyte Esterase (NEGATIVE) Fluid Type Fluid Color Fluid Appearance Fluid WBC K/uL Fluid RBC M/uL Fluid Mononuclear Cell % Fl Polymorphonucl Cell % Fluid Glucose mg/dL Fluid Total Protein g/dL Fluid Albumin g/dL Fluid LDH U/L Fluid Amylase U/L Fluid Triglycerides mg/dL Ethyl Alcohol <3 mg/dL 08/18/18 08/18/18 08/18/18 Range/Units 09:03 09:03 09:03 WBC (4.0-11.0) K/uL RBC (4.30-5.90) M/uL Hgb (12.0-16.0) g/dL Hct (36.0-46.0) % MCV (80.0-98.0) fL MCH (27.0-32.0) pg MCHC (31.0-37.0) g/dL RDW Std Deviation (28.0-62.0) fl RDW Coeff of Rosalinda (11.0-15.0) % Plt Count (150-400) K/uL MPV (7.40-12.00) fL Neut % (Auto) (48.0-80.0) % Lymph % (Auto) (16.0-40.0) % [place] % (Auto) (0.0-15.0) % Eos % (Auto) (0.0-7.0) % Baso % (Auto) (0.0-1.5) % Neut # (Auto) (1.4-5.7) K/uL Lymph # (Auto) (0.6-2.4) K/uL [place] # (Auto) (0.0-0.8) K/uL Eos # (Auto) (0.0-0.7) K/uL Baso # (Auto) (0.0-0.1) K/uL Nucleated RBC % /100WBC Nucleated RBCs # K/uL INR Sodium (136-145) mmol/L Potassium (3.5-5.1) mmol/L Chloride (98-107) mmol/L Carbon Dioxide (21.0-32.0) mmol/L BUN (7.0-18.0) mg/dL Creatinine (0.6-1.0) mg/dL Est Cr Clr Drug Dosing Estimated GFR (MDRD) ml/min Glucose (74-106) mg/dL Calcium (8.5-10.1) mg/dL Total Bilirubin (0.2-1.0) mg/dL AST (15-37) IU/L ALT (14-63) IU/L Alkaline Phosphatase (46-116) U/L Ammonia 36 (19-54) ug/dL Lactate Dehydrogenase 228 (81-234) U/L Troponin I (0.000-0.056) ng/mL B-Natriuretic Peptide 135 H (<100) PG/ML Total Protein (6.4-8.2) g/dL Albumin (3.4-5.0) g/dL Globulin (2.6-4.0) g/dL Albumin/Globulin Ratio (0.9-1.6) Amylase (25-115) U/L Lipase (73-393) U/L Urine Color Urine Appearance Urine pH (5.0-8.0) Ur Specific [place] (1.001-1.035) Urine Protein (NEGATIVE) mg/dL Urine Glucose (UA) (NEGATIVE) mg/dL Urine Ketones (NEGATIVE) mg/dL Urine Occult Blood (NEGATIVE) Urine Nitrite (NEGATIVE) Urine Bilirubin (NEGATIVE) Urine Urobilinogen (<2.0) EU/dL Ur Leukocyte Esterase (NEGATIVE) Fluid Type Fluid Color Fluid Appearance Fluid WBC K/uL Fluid RBC M/uL Fluid Mononuclear Cell % Fl Polymorphonucl Cell % Fluid Glucose mg/dL Fluid Total Protein g/dL Fluid Albumin g/dL Fluid LDH U/L Fluid Amylase U/L Fluid Triglycerides mg/dL Ethyl Alcohol mg/dL 08/18/18 08/18/18 08/19/18 Range/Units 12:45 16:05 05:39 WBC 5.75 (4.0-11.0) K/uL RBC 3.58 L (4.30-5.90) M/uL Hgb 12.1 (12.0-16.0) g/dL Hct 36.6 (36.0-46.0) % MCV 102.2 H (80.0-98.0) fL MCH 33.8 H (27.0-32.0) pg MCHC 33.1 (31.0-37.0) g/dL RDW Std Deviation 52.6 (28.0-62.0) fl RDW Coeff of Rosalinda 14 (11.0-15.0) % Plt Count 231 (150-400) K/uL MPV 10.30 (7.40-12.00) fL Neut % (Auto) 60.9 (48.0-80.0) % Lymph % (Auto) 27.0 (16.0-40.0) % [place] % (Auto) 10.3 (0.0-15.0) % Eos % (Auto) 0.9 (0.0-7.0) % Baso % (Auto) 0.9 (0.0-1.5) % Neut # (Auto) 3.5 (1.4-5.7) K/uL Lymph # (Auto) 1.6 (0.6-2.4) K/uL [place] # (Auto) 0.6 (0.0-0.8) K/uL Eos # (Auto) 0.1 (0.0-0.7) K/uL Baso # (Auto) 0.1 (0.0-0.1) K/uL Nucleated RBC % 0.0 /100WBC Nucleated RBCs # 0 K/uL INR Sodium (136-145) mmol/L Potassium (3.5-5.1) mmol/L Chloride (98-107) mmol/L Carbon Dioxide (21.0-32.0) mmol/L BUN (7.0-18.0) mg/dL Creatinine (0.6-1.0) mg/dL Est Cr Clr Drug Dosing Estimated GFR (MDRD) ml/min Glucose (74-106) mg/dL Calcium (8.5-10.1) mg/dL Total Bilirubin (0.2-1.0) mg/dL AST (15-37) IU/L ALT (14-63) IU/L Alkaline Phosphatase (46-116) U/L Ammonia (19-54) ug/dL Lactate Dehydrogenase (81-234) U/L Troponin I (0.000-0.056) ng/mL B-Natriuretic Peptide (<100) PG/ML Total Protein (6.4-8.2) g/dL Albumin (3.4-5.0) g/dL Globulin (2.6-4.0) g/dL Albumin/Globulin Ratio (0.9-1.6) Amylase (25-115) U/L Lipase (73-393) U/L Urine Color YELLOW Urine Appearance CLEAR Urine pH 5.0 (5.0-8.0) Ur Specific [place] <= 1.005 (1.001-1.035) Urine Protein NEGATIVE (NEGATIVE) mg/dL Urine Glucose (UA) NEGATIVE (NEGATIVE) mg/dL Urine Ketones NEGATIVE (NEGATIVE) mg/dL Urine Occult Blood NEGATIVE (NEGATIVE) Urine Nitrite NEGATIVE (NEGATIVE) Urine Bilirubin NEGATIVE (NEGATIVE) Urine Urobilinogen 0.2 (<2.0) EU/dL Ur Leukocyte Esterase NEGATIVE (NEGATIVE) Fluid Type PER Fluid Color YELLOW Fluid Appearance CLOUDY Fluid WBC 0.25 K/uL Fluid RBC 0.00 M/uL Fluid Mononuclear Cell 92.5 % Fl Polymorphonucl Cell 7.5 % Fluid Glucose 89 mg/dL Fluid Total Protein 2.2 g/dL Fluid Albumin 0.8 g/dL Fluid LDH 54 U/L Fluid Amylase 8 U/L Fluid Triglycerides 21 mg/dL Ethyl Alcohol mg/dL 08/19/18 Range/Units 05:39 WBC (4.0-11.0) K/uL RBC (4.30-5.90) M/uL Hgb (12.0-16.0) g/dL Hct (36.0-46.0) % MCV (80.0-98.0) fL MCH (27.0-32.0) pg MCHC (31.0-37.0) g/dL RDW Std Deviation (28.0-62.0) fl RDW Coeff of Rosalinda (11.0-15.0) % Plt Count (150-400) K/uL MPV (7.40-12.00) fL Neut % (Auto) (48.0-80.0) % Lymph % (Auto) (16.0-40.0) % [place] % (Auto) (0.0-15.0) % Eos % (Auto) (0.0-7.0) % Baso % (Auto) (0.0-1.5) % Neut # (Auto) (1.4-5.7) K/uL Lymph # (Auto) (0.6-2.4) K/uL [place] # (Auto) (0.0-0.8) K/uL Eos # (Auto) (0.0-0.7) K/uL Baso # (Auto) (0.0-0.1) K/uL Nucleated RBC % /100WBC Nucleated RBCs # K/uL INR Sodium 144 (136-145) mmol/L Potassium 3.4 L (3.5-5.1) mmol/L Chloride 107 (98-107) mmol/L Carbon Dioxide 30.4 (21.0-32.0) mmol/L BUN 5 L (7.0-18.0) mg/dL Creatinine 0.5 L (0.6-1.0) mg/dL Est Cr Clr Drug Dosing 129.73 Estimated GFR (MDRD) > 60.0 ml/min Glucose 78 (74-106) mg/dL Calcium 8.3 L (8.5-10.1) mg/dL Total Bilirubin 0.6 (0.2-1.0) mg/dL AST 19 (15-37) IU/L ALT 10 L (14-63) IU/L Alkaline Phosphatase 68 (46-116) U/L Ammonia (19-54) ug/dL Lactate Dehydrogenase (81-234) U/L Troponin I (0.000-0.056) ng/mL B-Natriuretic Peptide (<100) PG/ML Total Protein 5.3 L (6.4-8.2) g/dL Albumin 2.1 L (3.4-5.0) g/dL Globulin 3.2 (2.6-4.0) g/dL Albumin/Globulin Ratio 0.7 L (0.9-1.6) Amylase (25-115) U/L Lipase (73-393) U/L Urine Color Urine Appearance Urine pH (5.0-8.0) Ur Specific [place] (1.001-1.035) Urine Protein (NEGATIVE) mg/dL Urine Glucose (UA) (NEGATIVE) mg/dL Urine Ketones (NEGATIVE) mg/dL Urine Occult Blood (NEGATIVE) Urine Nitrite (NEGATIVE) Urine Bilirubin (NEGATIVE) Urine Urobilinogen (<2.0) EU/dL Ur Leukocyte Esterase (NEGATIVE) Fluid Type Fluid Color Fluid Appearance Fluid WBC K/uL Fluid RBC M/uL Fluid Mononuclear Cell % Fl Polymorphonucl Cell % Fluid Glucose mg/dL Fluid Total Protein g/dL Fluid Albumin g/dL Fluid LDH U/L Fluid Amylase U/L Fluid Triglycerides mg/dL Ethyl Alcohol mg/dL LAURENT Results - Last 24 hrs: Microbiology 08/18/18 16:05 Gram Stain - Preliminary Ascities Fluid Med Orders - Current: Current Medications Hydrocodone Bitart/Acetaminophen ([place] 325-10 Mg) 1 tab PO Q8H PRN PRN Reason: Pain Last Admin: 08/18/18 19:15 Dose: 1 tab Melatonin (Melatonin) 3 mg PO BEDTIME [facility] Last Admin: 08/18/18 21:55 Dose: 3 mg Metoprolol Succinate (Toprol Xl) 100 mg PO BEDTIME [facility] Last Admin: 08/18/18 21:55 Dose: 100 mg Omeprazole (Omeprazole) 40 mg PO ACBRK [facility] Last Admin: 08/19/18 06:44 Dose: 40 mg Ondansetron HCl (Zofran) 4 mg IVPUSH Q4H PRN PRN Reason: Nausea/Vomiting Amylase/Lipase/Protease 24,000 Unit Cap.Cr 2 each PO TIDMEALS [facility] Last Admin: 08/19/18 08:53 Dose: 2 each Sertraline HCl (Zoloft) 100 mg PO DAILY [facility] Last Admin: 08/19/18 08:53 Dose: 100 mg Discontinued Medications Sodium Chloride (Normal Saline) 1,000 mls @ 125 mls/hr IV STAT [facility] Last Admin: 08/18/18 09:35 Dose: 125 mls/hr Albumin Human (Flexbumin 25%) 12.5 gm in 50 mls @ 100 mls/hr IV ONETIME ONE Stop: 08/18/18 17:38 Last Admin: 08/18/18 17:23 Dose: 100 mls/hr Albumin Human (Flexbumin 25%) 12.5 gm in 50 mls @ 100 mls/hr IV ONETIME ONE Stop: 08/18/18 18:10 Last Admin: 08/18/18 18:25 Dose: 100 mls/hr Albumin Human (Flexbumin 25%) 12.5 gm in 50 mls @ 100 mls/hr IV ONETIME ONE Stop: 08/18/18 18:39 Last Admin: 08/18/18 19:17 Dose: 100 mls/hr Albumin Human (Flexbumin 25%) 12.5 gm in 50 mls @ 100 mls/hr IV ONETIME ONE Stop: 08/18/18 19:11 Last Admin: 08/18/18 19:57 Dose: 100 mls/hr Iopamidol (Isovue Multipack-370 (76%)) 100 ml IVPUSH ONETIME STA Stop: 08/18/18 11:04 Last Admin: 08/18/18 11:04 Dose: 100 ml Metoprolol Succinate (Toprol Xl) 100 mg PO DAILY [facility] <Agusto Raya - Last Filed: 08/19/18 16:20> Discharge Summary - Hospital Course Free Text/Narrative:: I have seen and examined the patient independently of medical practitioners, Elsie Gooden MD. I have discussed the case with her. I have reviewed and agree with the assessment and plan of care for the patient as outlined by her. Please see orders. - Patient Data Vitals - Most Recent: Last Vital Signs Temp 36.8 C 08/19/18 08:00 Pulse 64 08/19/18 08:00 Resp 16 08/19/18 08:00 BP 94/56 L 08/19/18 08:00 Pulse Ox 94 L 08/19/18 08:00 I&O - Last 24 hours: Intake & Output 08/19/18 08/19/18 08/19/18 06:59 14:59 22:59 Intake Total 750 600 Output Total 900 200 Balance -150 400 Lab Results - Last 24 hrs: Laboratory Results - last 24 hr 08/18/18 08/19/18 08/19/18 Range/Units 16:05 05:39 05:39 WBC 5.75 (4.0-11.0) K/uL RBC 3.58 L (4.30-5.90) M/uL Hgb 12.1 (12.0-16.0) g/dL Hct 36.6 (36.0-46.0) % MCV 102.2 H (80.0-98.0) fL MCH 33.8 H (27.0-32.0) pg MCHC 33.1 (31.0-37.0) g/dL RDW Std Deviation 52.6 (28.0-62.0) fl RDW Coeff of Rosalinda 14 (11.0-15.0) % Plt Count 231 (150-400) K/uL MPV 10.30 (7.40-12.00) fL Neut % (Auto) 60.9 (48.0-80.0) % Lymph % (Auto) 27.0 (16.0-40.0) % [place] % (Auto) 10.3 (0.0-15.0) % Eos % (Auto) 0.9 (0.0-7.0) % Baso % (Auto) 0.9 (0.0-1.5) % Neut # (Auto) 3.5 (1.4-5.7) K/uL Lymph # (Auto) 1.6 (0.6-2.4) K/uL [place] # (Auto) 0.6 (0.0-0.8) K/uL Eos # (Auto) 0.1 (0.0-0.7) K/uL Baso # (Auto) 0.1 (0.0-0.1) K/uL Nucleated RBC % 0.0 /100WBC Nucleated RBCs # 0 K/uL Sodium 144 (136-145) mmol/L Potassium 3.4 L (3.5-5.1) mmol/L Chloride 107 (98-107) mmol/L Carbon Dioxide 30.4 (21.0-32.0) mmol/L BUN 5 L (7.0-18.0) mg/dL Creatinine 0.5 L (0.6-1.0) mg/dL Est Cr Clr Drug Dosing 129.73 mL/min Estimated GFR (MDRD) > 60.0 ml/min Glucose 78 (74-106) mg/dL Calcium 8.3 L (8.5-10.1) mg/dL Total Bilirubin 0.6 (0.2-1.0) mg/dL AST 19 (15-37) IU/L ALT 10 L (14-63) IU/L Alkaline Phosphatase 68 (46-116) U/L Total Protein 5.3 L (6.4-8.2) g/dL Albumin 2.1 L (3.4-5.0) g/dL Globulin 3.2 (2.6-4.0) g/dL Albumin/Globulin Ratio 0.7 L (0.9-1.6) Fluid Type PER Fluid Color YELLOW Fluid Appearance CLOUDY Fluid WBC 0.25 K/uL Fluid RBC 0.00 M/uL Fluid Mononuclear Cell 92.5 % Fl Polymorphonucl Cell 7.5 % Fluid Glucose 89 mg/dL Fluid Total Protein 2.2 g/dL Fluid Albumin 0.8 g/dL Fluid LDH 54 U/L Fluid Amylase 8 U/L Fluid Triglycerides 21 mg/dL LAURENT Results - Last 24 hrs: Microbiology 08/18/18 16:05 Gram Stain - Final Ascities Fluid Body Fluid Culture - Preliminary NO GROWTH AFTER 1 DAY Med Orders - Current: Current Medications Discontinued Medications Hydrocodone Bitart/Acetaminophen ([place] 325-10 Mg) 1 tab PO Q8H PRN PRN Reason: Pain Last Admin: 08/18/18 19:15 Dose: 1 tab Sodium Chloride (Normal Saline) 1,000 mls @ 125 mls/hr IV STAT [facility] Last Admin: 08/18/18 09:35 Dose: 125 mls/hr Albumin Human (Flexbumin 25%) 12.5 gm in 50 mls @ 100 mls/hr IV ONETIME ONE Stop: 08/18/18 17:38 Last Admin: 08/18/18 17:23 Dose: 100 mls/hr Albumin Human (Flexbumin 25%) 12.5 gm in 50 mls @ 100 mls/hr IV ONETIME ONE Stop: 08/18/18 18:10 Last Admin: 08/18/18 18:25 Dose: 100 mls/hr Albumin Human (Flexbumin 25%) 12.5 gm in 50 mls @ 100 mls/hr IV ONETIME ONE Stop: 08/18/18 18:39 Last Admin: 08/18/18 19:17 Dose: 100 mls/hr Albumin Human (Flexbumin 25%) 12.5 gm in 50 mls @ 100 mls/hr IV ONETIME ONE Stop: 03/22/19 19:11 Last Admin: 08/18/18 19:57 Dose: 100 mls/hr Iopamidol (Isovue Multipack-370 (76%)) 100 ml IVPUSH ONETIME STA Stop: 08/18/18 11:04 Last Admin: 08/18/18 11:04 Dose: 100 ml Melatonin (Melatonin) 3 mg PO BEDTIME [facility] Last Admin: 08/18/18 21:55 Dose: 3 mg Metoprolol Succinate (Toprol Xl) 100 mg PO DAILY [facility] Metoprolol Succinate (Toprol Xl) 100 mg PO BEDTIME [facility] Last Admin: 08/18/18 21:55 Dose: 100 mg Omeprazole (Omeprazole) 40 mg PO ACBRK [facility] Last Admin: 08/19/18 06:44 Dose: 40 mg Ondansetron HCl (Zofran) 4 mg IVPUSH Q4H PRN PRN Reason: Nausea/Vomiting Last Admin: 08/19/18 10:21 Dose: 4 mg Amylase/Lipase/Protease 24,000 Unit Cap.Cr 2 each PO TIDMEALS [facility] Last Admin: 08/19/18 08:53 Dose: 2 each Sertraline HCl (Zoloft) 100 mg PO DAILY [facility] Last Admin: 08/19/18 08:53 Dose: 100 mg
--- NOTE | 2018-08-21 08:32 | US ---
EXAMINATION: Ultrasound guided paracentesis. HISTORY: Ascites. FINDINGS/TECHNIQUE: The procedure, risks, and benefits were discussed with the patient. Written informed consent was obtained. The right lower quadrant was sterilely prepped and draped. 1% lidocaine was administered for local anesthesia. Using ultrasound guidance a 6 [place] [employer] centesis needle was advanced. The catheter was left in place. 11 L of yellow noncloudy fluid was collected. The patient tolerated the procedure well. IMPRESSION: Successful US guided paracentesis.
== END 2018-08-19 10:40 | disposition home or self-care (01) | DRG 433 ==
LOC: MW.ED 08:37 → MW.MS 12:53
PROVIDERS: ADMIT Internal Medicine; ATTEND Internal Medicine
PROC: 0W9G30Z Drainage of Peritoneal Cavity with Drainage Device, Percutaneous Approach (ICD-10-PCS; principal; 2018-08-18)
DX: K74.60 Unspecified cirrhosis of liver (principal); R18.8 Other ascites; I10 Essential (primary) hypertension; K21.9 Gastro-esophageal reflux disease without esophagitis; F32.9 Major depressive disorder, single episode, unspecified; K76.0 Fatty (change of) liver, not elsewhere classified; M19.90 Unspecified osteoarthritis, unspecified site; Z79.899 Other long term (current) drug therapy; Z88.5 Allergy status to narcotic agent; Z90.49 Acquired absence of other specified parts of digestive tract; Z96.649 Presence of unspecified artificial hip joint; Z87.891 Personal history of nicotine dependence
CPT/HCPCS: 36415; 49083; 71045; 71045-26; 74177; 74177-26; 80053; 81003; 82140; 82150; 82945; 83615; 83690; 83880; 84157; 84478; 84484; 85025; 85610; 87070; 87205; 88104; 89050; 93005; 96360; 96361; 99284; 99285-25; A9270-GY; G0480; J2405; J7040; P9047; Q9967

== ENCOUNTER 2020-12-15 06:41 | Day surgery (SDC) | payer BC, OTHER ==
[2020-12-15] MEDS ORDERED: Propofol 200 MG/20 ML SDV ONE ×2 (06:48→08:27)
[2020-12-15] MEDS: Lactated Ringers 1,000 ML IV SCH (07:23)
--- NOTE | 2020-12-15 07:33 | PCM.PREANE ---
Preanesthetic Assessment - Anesthesia/Transfusion/Family Hx Anesthesia History: Prior Anesthesia Without Reaction Other Type of Anesthesia Reaction Comment: Light anesthesia with cataract surgery...Had headache after procedure Family History of Anesthesia Reaction: No Transfusion History: No Prior Transfusion(s) - Review of Systems General: No Symptoms Pulmonary: Other (Previous smoker) Cardiovascular: No Symptoms Gastrointestinal: No Symptoms Neurological: No Symptoms Other: Reports: None - Physical Assessment NPO Status Date: 12/14/20 NPO Status Time: 21:00 Height: 5 ft 10 in Weight: 90.718 kg ASA Class: 3 Mental Status: Alert & Oriented x3 Dentition: Reports: Normal Dentition Thyro-Mental Finger Breadths: 3 Mouth Opening Finger Breadths: 3 ROM/Head Extension: Full Lungs: Clear to Auscultation, Normal Respiratory Effort Cardiovascular: Regular Rate, Regular Rhythm - Lab Values: Laboratory Last Values POC Glucose 131 mg/dL (70-99) H 12/15/20 07:10 - Allergies Allergies/Adverse Reactions: Allergies Allergy/AdvReac Type Severity Reaction Status Date / Time oxycodone [From Percocet] Allergy Itching Verified 12/15/20 07:19 - Anesthesia Plan Pre-Op Medication Ordered: None - Acknowledgements Anesthesia Type Planned: General Anesthesia Pt an Appropriate Candidate for the Planned Anesthesia: Yes Alternatives and Risks of Anesthesia Discussed w Pt/Guardian: Yes Pt/Guardian Understands and Agrees with Anesthesia Plan: Yes PreAnesthesia Questionnaire - Past Health History Medical/Surgical History: Denies Medical/Surgical History HEENT History: Reports: Cataract, Other (See Below) Other HEENT History: wears glasses Cardiovascular History: Reports: Hypertension Respiratory History: Reports: None Gastrointestinal History: Reports: Colon Polyp, GERD, Pancreatitis Genitourinary History: Reports: None 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: Musculoskeletal History: Reports: Arthritis Neurological History: Reports: None Psychiatric History: Reports: Anxiety, Other (See Below) Other Psychiatric History: hx of claustrophobia Endocrine/Metabolic History: Reports: IDDM Hematologic History: Reports: None Immunologic History: Reports: None Oncologic (Cancer) History: Reports: None Dermatologic History: Reports: None - Infectious Disease History Infectious Disease History: Reports: Chicken Pox - Past Surgical History Head Surgeries/Procedures: Reports: None HEENT Surgical History: Reports: Cataract Surgery Other HEENT Surgeries/Procedures: cataract surgery both eyes Cardiovascular Surgical History: Reports: None Respiratory Surgical History: Reports: None GI Surgical History: Reports: Cholecystectomy, Colonoscopy, EGD, Other (See Below) Other GI Surgeries/Procedures: hx of whipple procedure done in August of 2014 for a cyst on the head of the pancreas Female Surgical History: Reports: None Endocrine Surgical History: Reports: None Neurological Surgical History: Reports: None Musculoskeletal Surgical History: Reports: Hip Replacement Other Musculoskeletal Surgeries/Procedures:: Rt hip replacement Oncologic Surgical History: Reports: None Dermatological Surgical History: Reports: None - SUBSTANCE USE Tobacco Use Status *Q: Former Tobacco User Tobacco Use Within Last Twelve Months: No Recreational Drug Use History: No - HOME MEDS Home Medications: Home Meds Sertraline [Zoloft] 50 mg PO DAILY 01/16/16 [History] Amylase/Lipase/Protease [Creon DR 24,000 Unit] 48,000 unit PO TIDMEALS 06/01/16 [History] ondansetron HCL [Ondansetron] 4 mg PO Q4H PRN 06/01/16 [History] Omeprazole 40 mg PO DAILY 08/18/18 [History] Furosemide [Lasix] 20 mg PO DAILY 14 Days #14 tablet 08/19/18 [Rx] HYDROmorphone [Dilaudid] 2 mg PO TID PRN 12/09/20 [History] Insulin Aspart (Niacinamide) [Fiasp 100 Unit/ml Flextouch] 5 - 7 unit SQ TIDMEALS 12/09/20 [History] Insulin Glargine,Hum.Rec.Anlog [Lantus Solostar] 20 unit PO BEDTIME 12/09/20 [History] Inulin/Chromium Picolinate [Fiber Gummies] 2 tab PO DAILY 12/09/20 [History] Midodrine 5 mg PO BID 12/09/20 [History] Sennosides/Docusate Sodium [Senna Plus 8.6-50 mg Softgel] 1 cap PO BEDTIME PRN 12/09/20 [History] Spironolactone 100 mg PO DAILY 12/09/20 [History] - CURRENT (IN HOUSE) MEDS Current Meds: Current Medications Lactated Ringer's (Ringers, Lactated) 1,000 mls @ 125 mls/hr IV ASDIRECTED JOHNIE Last Admin: 12/15/20 07:23 Dose: 125 mls/hr Documented by: Discontinued Medications Lidocaine HCl (Lidocaine 1% 5 Ml Sdv) Confirm Administered Dose 5 ml .ROUTE .STK-MED ONE Stop: 12/15/20 06:49 Propofol (Propofol 200 Mg/20 Ml Sdv) Confirm Administered Dose 400 mg .ROUTE .STK-MED ONE Stop: 12/15/20 06:49
[2020-12-15] MEDS ORDERED: Ondansetron 4 MG/2 ML SDV ONE (07:45)
[2020-12-15] MEDS ORDERED: Ketorolac 30 MG/ML SDV ONE (09:02)
[2020-12-15] MEDS ORDERED: Lactated Ringers 1,000 ML IV SCH ×2 (09:15)
--- NOTE | 2020-12-15 09:15 | PCM.POSTAN ---
POST ANESTHESIA ASSESSMENT - MENTAL STATUS Mental Status: Alert, Oriented - VITAL SIGNS Vital Signs: Last Vital Signs Temp 36.6 C 12/15/20 07:26 Pulse 79 12/15/20 07:26 Resp 16 12/15/20 07:26 BP 129/73 12/15/20 07:26 Pulse Ox 96 12/15/20 07:26 - RESPIRATORY Respiratory Status: Respiratory Rate WNL, Airway Patent, O2 Saturation Stable - CARDIOVASCULAR CV Status: Pulse Rate WNL, Blood Pressure Stable - GASTROINTESTINAL GI Status: No Symptoms - POST OP HYDRATION Hydration Status: Adequate & Stable
--- NOTE | 2020-12-15 09:15 | PCM48HPAN ---
Post Anesthesia Note - EVALUATION WITHIN 48HRS OF ANESTHETIC Vital Signs in Normal Range: Yes Patient Participated in Evaluation: Yes Respiratory Function Stable: Yes Airway Patent: Yes Cardiovascular Function Stable: Yes Hydration Status Stable: Yes Pain Control Satisfactory: Yes Nausea and Vomiting Control Satisfactory: Yes Mental Status Recovered: Yes Vital Signs: Last Vital Signs Temp 36.6 C 12/15/20 07:26 Pulse 79 12/15/20 07:26 Resp 16 12/15/20 07:26 BP 129/73 12/15/20 07:26 Pulse Ox 96 12/15/20 07:26
--- NOTE | 2020-12-15 09:25 | PCM.OPNOTE ---
- General Post-Op/Procedure Note Date of Surgery/Procedure: 12/15/20 Operative Procedure(s): Colonoscopy with cold ascending colon, mid and distal transverse colon, polypectomies Pre Op Diagnosis: Personal history of colon polyps. Family history of colon cancer. Post-Op Diagnosis: Ascending colon, mid and distal transverse colon polyps. Anesthesia Technique: MAC (ASA III) Primary Surgeon: Senthil Sy Condition: Good Free Text/Narrative:: DICTATION 368181 CPT CODE [id number]
--- NOTE | 2020-12-15 09:53 | OR ---
SURGEON: Senthil Sy M.D. DATE OF PROCEDURE: 12/15/2020 OPERATION PERFORMED: Colonoscopy with multiple cold polypectomies from the ascending colon, mid and distal transverse colons. PREOPERATIVE DIAGNOSES: 1. Personal history of colon polyps. 2. Family history of colon cancer. POSTOPERATIVE DIAGNOSIS: Multiple colon polyps in the ascending colon, mid and distal transverse colons. DESCRIPTION OF PROCEDURE: The patient was taken to the endoscopy room, positioned on the endoscopy table in a left lateral decubitus position. Time-out was called for appropriate identification of the patient and procedure. Monitored anesthesia care was provided. The colonoscope was inserted into the rectum and advanced with great difficulty to the cecum. The patient did have what appeared to be a corkscrew type appearance in the sigmoid colon making maneuvering of the scope quite difficult. Once the colonoscope had been advanced to the cecum, the colonoscope was retroflexed. The cecum was identified by internal landmarks and external pressure. After retroflexing the colonoscope, it was slowly withdrawn. Polyps were encountered in the ascending colon, mid and distal transverse colons. These were serially removed and sent for separate histologic analysis. No diverticular changes were noted. There was no evidence of a neoplastic process. No tumors were identified other than the polyps previously described. The cecum, ascending colon, hepatic flexure, transverse colon, splenic flexure, descending colon, and sigmoid colon were all very well visualized. No diverticular changes were noted anywhere in the lower gastrointestinal tract. Once the colonoscope was withdrawn to the rectum, it was retroflexed to visualize the anal orifice from above. No tumors, polyps, or acute hemorrhoidal changes were noted in the rectum. The colonoscope was then straightened, the rectum aspirated, and the colonoscope removed. The patient tolerated the procedure well and was taken to recovery room in stable condition. GREGORIO / SUDARSHAN /[id number]
[2020-12-15 10:29] VITALS: BP 100/52; PULSE 68
== END 2020-12-15 10:10 | disposition home or self-care (01) ==
LOC: MW.SDS 06:41
PROVIDERS: ATTEND Surgery
DX: Z12.11 Encounter for screening for malignant neoplasm of colon (principal); D12.3 Benign neoplasm of transverse colon; D12.2 Benign neoplasm of ascending colon; I10 Essential (primary) hypertension; E11.9 Type 2 diabetes mellitus without complications; F17.210 Nicotine dependence, cigarettes, uncomplicated; Z86.010 Personal history of colon polyps; Z79.4 Long term (current) use of insulin; Z80.0 Family history of malignant neoplasm of digestive organs; Z88.8 Allergy status to other drugs, medicaments and biological substances; Z79.899 Other long term (current) drug therapy; Z98.890 Other specified postprocedural states
CPT/HCPCS: 45380; 82947; 88305; J1885; J2370; J2405; J2704; J7120; 00811

== ENCOUNTER 2021-04-06 02:20 | Emergency (ER) | payer BC ==
--- NOTE | 2021-04-06 02:44 | EDM.PDOC ---
<Crow Bowman - Last Filed: 04/06/21 03:37> ED HPI GENERAL MEDICAL PROBLEM - General Chief Complaint: General Stated Complaint: GENERAL SICKNESS Time Seen by Provider: 04/06/21 02:43 Source of Information: Reports: Patient History Limitations: Reports: No Limitations - History of Present Illness INITIAL COMMENTS - FREE TEXT/NARRATIVE: 61-year-old female past medical history cirrhosis, chronic pancreatitis, hypertension, diabetes presents for bilateral lower extremity edema and pain. Patient notes that she was taken off of her diuretics due to hyponatremia and renal failure. Patient notes that she has follow-up with her manager cancer tomorrow. She notes that over the last 3 weeks she has had worsening lower extremity edema going up the entire legs and into her lower abdomen. She last had a paracentesis 1 week ago. She notes that her edema was typically controlled with her spironolactone and Lasix, however, due to low sodium and worsening r enal function she was told not to take these medications. She denies any chest pain or difficulty breathing. She does take 2 mg Dilaudid 3 times daily as needed for pain at home which is not relieving the pain. She notes that it is getting to the point that she is having difficulty ambulating. - Related Data Allergies Allergy/AdvReac Type Severity Reaction Status Date / Time oxycodone [From Percocet] Allergy Itching Verified 04/06/21 02:33 Home Meds: Home Meds Sertraline [Zoloft] 50 mg PO DAILY 01/16/16 [History] Amylase/Lipase/Protease [Alexei LARRY 24,000 Unit] 48,000 unit PO TIDMEALS 06/01/16 [History] ondansetron HCL [Ondansetron] 4 mg PO Q4H PRN 06/01/16 [History] Omeprazole 40 mg PO DAILY 08/18/18 [History] HYDROmorphone [Dilaudid] 2 mg PO TID PRN 12/09/20 [History] Insulin Aspart (Niacinamide) [Fiasp 100 Unit/ml Flextouch] 5 - 7 unit SQ TIDMEALS 12/09/20 [History] Insulin Glargine,Hum.Rec.Anlog [Lantus Solostar] 20 unit PO BEDTIME 12/09/20 [History] Midodrine 5 mg PO BID 12/09/20 [History] Sennosides/Docusate Sodium [Senna Plus 8.6-50 mg Softgel] 1 cap PO BEDTIME PRN 12/09/20 [History] Past Medical History - Past Health History Medical/Surgical History: Denies Medical/Surgical History HEENT History: Reports: Cataract, Other (See Below) Other HEENT History: wears glasses Cardiovascular History: Reports: Hypertension Respiratory History: Reports: None Gastrointestinal History: Reports: Colon Polyp, GERD, Pancreatitis Genitourinary History: Reports: 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: Musculoskeletal History: Reports: Arthritis Neurological History: Reports: None Psychiatric History: Reports: Anxiety, Other (See Below) Other Psychiatric History: hx of claustrophobia Endocrine/Metabolic History: Reports: IDDM Hematologic History: Reports: None Immunologic History: Reports: None Oncologic (Cancer) History: Reports: None Dermatologic History: Reports: None - Infectious Disease History Infectious Disease History: Reports: Chicken Pox - Past Surgical History Head Surgeries/Procedures: Reports: None HEENT Surgical History: Reports: Cataract Surgery Other HEENT Surgeries/Procedures: cataract surgery both eyes Cardiovascular Surgical History: Reports: None Respiratory Surgical History: Reports: None GI Surgical History: Reports: Cholecystectomy, Colonoscopy, EGD, Other (See Below) Other GI Surgeries/Procedures: hx of whipple procedure done in August of 2014 for a cyst on the head of the pancreas Female Surgical History: Reports: None Endocrine Surgical History: Reports: None Neurological Surgical History: Reports: None Musculoskeletal Surgical History: Reports: Hip Replacement Other Musculoskeletal Surgeries/Procedures:: Rt hip replacement Oncologic Surgical History: Reports: None Dermatological Surgical History: Reports: None Social & Family History - Family History Family Medical History: No Pertinent Family History - Tobacco Use Tobacco Use Status *Q: Never Tobacco User - Caffeine Use Caffeine Use: Reports: None - Recreational Drug Use Recreational Drug Use: No ED ROS GENERAL - Review of Systems Review Of Systems: Comprehensive ROS is negative, except as noted in HPI. ED EXAM, GENERAL - Physical Exam Exam: See Below Exam Limited By: No Limitations General Appearance: Alert, WD/WN, No Apparent Distress Ears: Hearing Grossly Normal Throat/Mouth: Normal Voice, No Airway Compromise Head: Atraumatic, Normocephalic Respiratory/Chest: No Respiratory Distress, Lungs Clear, Normal Breath Sounds, No Accessory Muscle Use Cardiovascular: Normal Peripheral Pulses, Regular Rate, Rhythm, Other (severe b/l lower extremity pitting edema) GI/Abdominal: Soft, Non-Tender Neurological: Alert, Normal Cognition Psychiatric: Normal Affect, Normal Mood Course - Re-Assessments/Exams Free Text/Narrative Re-Assessment/Exam: 04/06/21 02:52 Patient presents with severe edema. Low suspicion pulmonary edema as patient has normal oxygen saturation and does not complain of shortness of breath. Will get labs to check for renal function and electrolyte levels. Will treat patient's pain. Discussed giving a dose of IV diuretics if patient's renal function and electrolytes can tolerate. 04/06/21 03:26 Patient's labs show hyponatremia to 123 and creatinine of 5. Although I do not have access to patient's baseline labs given the history described to me I imagine this is not acute. I had a long discussion with patient and her daughter regarding disposition. I believe that patient is an unsafe discharge as she lives alone and she is unable to care for herself given her current clinical condition. Given the renal failure I believe that she will need a manager cancer to help manage her case. Will work on transferring patient. Her manager cancer at [facility] is Dr. Hays 04/06/21 03:37 Dr. Hays recommends metolazone 20mg and lasix 80mg. [facility] does not have waiting lists or bed availability. They may have beds available in the morning. Will keep patient in ER for now, sign out to day-team ED physician to f/u reassessment of bed status at [facility] in AM, and if that is not an option to consider admitting patient here with Dr. Hays nephrology at [facility] consulting. Departure - Departure Disposition: DC/Tfer to [facility] Clinical Impression: ESRD (end stage renal disease), Volume overload, Hepatic encephalopathy - Discharge Information Sepsis Event Note (ED) - Evaluation Sepsis Screening Result: No Definite Risk <Ryan Reynoso - Last Filed: 04/06/21 14:50> Course - Vital Signs Text/Narrative:: [facility] still without beds available. I spoke to the manager cancer, Dr. Harp there. He states he does recommend Lasix 80 mg every 6 hours and metolazone 20 mg daily and hold blood pressure medications. Patient be diuresed until a bed becomes available and the patient can stay here. Patient improves she will be able to follow-up as an outpatient if she does not she will need to be transferred. I spoke to the hospitalist to update him on the plan and he is able to admit for continued treatment and management I evaluated the patient at the bedside the patient does have some significant ascites. Procedure was done for drainage paracentesis. Procedure paracentesis. The area was sterilely prepped. Anesthetized with 1% lidocaine. Under ultrasound guidance a catheter was placed under modified Seldinger technique to remove number of liters of fluid. Patient tolerated the procedure well and there were no complications. I am concerned that this patient has an elevation in her creatinine. I would much prefer to have her transferred to where there is nephrology but [place] [facility] [place] we have contacted 8 hospitals and no one has beds available. Patient does not have immediate need for dialysis and may respond to our treatment here in the emergency department. As such there is a degree of time before there would be consideration of emergent dialysis and patient be admitted here for treatment and if she does not improve we have some wiggle room for time to dialysis in which case we can recontact facilities to take her when beds become available. Patient is followed by [facility]. 2:22 CT scan results have returned. Patient is not have hydronephrosis. CT of the head is negative. Patient did have an elevated ammonia level and lactulose will be given. Previously spoke to the daughter and now I have spoken to the son. We spoke of the risks and benefits of transferring further out to the hospital for further away even further than the significant numbers we have called. I am absolutely amendable to doing this. At this immediate time after discussion with the son the plan is to get the catheter and to see if there is any significant urine production. There is no urine production that is made and the patient most definitely will likely need dialysis. Panchal catheter was placed. There is not quite 100 cc of urine. And since the patient has been here and has not urinated since overnight the amount of urine made is negligible to none. The hospitalist communicated with her resident that works at [facility] to respeak to Dr. Morris in. I have since called Dr. Morris and and he request the patient be sent to the ED for dialysis. I spoken to the ED physician and they have accepted the patient in transfer. ( Dr. Schneider) Patient with some mild hypotension in the emergency department down to 85 after draining 3.25 L of peritoneal fluid. This is since rebounded and the patient last blood pressure 107 systolic Last Recorded V/S: Last Vital Signs Temp 36.4 C 04/06/21 02:31 Pulse 82 04/06/21 12:08 Resp 12 04/06/21 12:08 BP 95/51 L 04/06/21 12:08 Pulse Ox 98 04/06/21 12:08 - Orders/Labs/Meds Orders: Active Orders 24 hr Category Date Time Status Saline Lock Insert [OM.PC] Stat Oth 04/06/21 02:49 Ordered Medication Orders Pantoprazole Sodium 40 mg/ (Sodium Chloride) 10 mls @ 300 mls/hr IV DAILY JOHNIE Labs: Laboratory Tests 04/06/21 04/06/21 04/06/21 Range/Units 02:35 02:35 03:29 WBC 8.93 (4.0-11.0) K/uL RBC 3.65 L (4.30-5.90) M/uL Hgb 12.6 (12.0-16.0) g/dL Hct 35.5 L (36.0-46.0) % MCV 97.3 (80.0-98.0) fL MCH 34.5 H (27.0-32.0) pg MCHC 35.5 (31.0-37.0) g/dL RDW Std Deviation 47.9 (28.0-62.0) fl RDW Coeff of Rosalinda 14 (11.0-15.0) % Plt Count 218 (150-400) K/uL MPV 10.30 (7.40-12.00) fL Neut % (Auto) 64.7 (48.0-80.0) % Lymph % (Auto) 24.4 (16.0-40.0) % Ventura % (Auto) 9.4 (0.0-15.0) % Eos % (Auto) 1.1 (0.0-7.0) % Baso % (Auto) 0.4 (0.0-1.5) % Neut # (Auto) 5.8 H (1.4-5.7) K/uL Lymph # (Auto) 2.2 (0.6-2.4) K/uL Ventura # (Auto) 0.8 (0.0-0.8) K/uL Eos # (Auto) 0.1 (0.0-0.7) K/uL Baso # (Auto) 0.0 (0.0-0.1) K/uL Nucleated RBC % 0.0 /100WBC Nucleated RBCs # 0 K/uL Sodium 123 L (136-145) mmol/L Potassium 4.0 (3.5-5.1) mmol/L Chloride 90 L (98-107) mmol/L Carbon Dioxide 19.7 L (21.0-32.0) mmol/L BUN 49 H (7.0-18.0) mg/dL Creatinine 5.5 H (0.6-1.0) mg/dL Est Cr Clr Drug Dosing 12.16 mL/min Estimated GFR (MDRD) 7.9 ml/min Glucose 122 H (74-106) mg/dL Calcium 8.3 L (8.5-10.1) mg/dL Magnesium 2.5 H (1.8-2.4) mg/dL Total Bilirubin 1.5 H (0.2-1.0) mg/dL AST 56 H (15-37) IU/L ALT 30 (14-63) IU/L Alkaline Phosphatase 144 H (46-116) U/L Total Protein 7.5 (6.4-8.2) g/dL Albumin 2.4 L (3.4-5.0) g/dL Globulin 5.1 H (2.6-4.0) g/dL Albumin/Globulin Ratio 0.5 L (0.9-1.6) SARS-CoV-2 RNA (LACHO) NEGATIVE (NEGATIVE) 04/06/21 Range/Units 09:54 WBC (4.0-11.0) K/uL RBC (4.30-5.90) M/uL Hgb (12.0-16.0) g/dL Hct (36.0-46.0) % MCV (80.0-98.0) fL MCH (27.0-32.0) pg MCHC (31.0-37.0) g/dL RDW Std Deviation (28.0-62.0) fl RDW Coeff of Rosalinda (11.0-15.0) % Plt Count (150-400) K/uL MPV (7.40-12.00) fL Neut % (Auto) (48.0-80.0) % Lymph % (Auto) (16.0-40.0) % Ventura % (Auto) (0.0-15.0) % Eos % (Auto) (0.0-7.0) % Baso % (Auto) (0.0-1.5) % Neut # (Auto) (1.4-5.7) K/uL Lymph # (Auto) (0.6-2.4) K/uL Ventura # (Auto) (0.0-0.8) K/uL Eos # (Auto) (0.0-0.7) K/uL Baso # (Auto) (0.0-0.1) K/uL Nucleated RBC % /100WBC Nucleated RBCs # K/uL Sodium 122 L (136-145) mmol/L Potassium 4.2 (3.5-5.1) mmol/L Chloride 90 L (98-107) mmol/L Carbon Dioxide 19.9 L (21.0-32.0) mmol/L BUN 50 H (7.0-18.0) mg/dL Creatinine 5.6 H (0.6-1.0) mg/dL Est Cr Clr Drug Dosing 11.94 mL/min Estimated GFR (MDRD) 7.7 ml/min Glucose 112 H (74-106) mg/dL Calcium 9.0 (8.5-10.1) mg/dL Magnesium (1.8-2.4) mg/dL Total Bilirubin 1.9 H (0.2-1.0) mg/dL AST 55 H (15-37) IU/L ALT 31 (14-63) IU/L Alkaline Phosphatase 136 H (46-116) U/L Total Protein 7.7 (6.4-8.2) g/dL Albumin 2.5 L (3.4-5.0) g/dL Globulin 5.2 H (2.6-4.0) g/dL Albumin/Globulin Ratio 0.5 L (0.9-1.6) SARS-CoV-2 RNA (LACHO) (NEGATIVE) Meds: Medications Generic Name Dose Route Start Last Admin Trade Name Freq PRN Reason Stop Dose Admin Pantoprazole Sodium 40 mg/ 10 mls @ 300 mls/hr 04/07/21 09:00 Sodium Chloride IV DAILY JOHNIE Discontinued Medications Generic Name Dose Route Start Last Admin Trade Name Hema TENORIO Reason Stop Dose Admin Furosemide 80 mg 04/06/21 03:34 04/06/21 03:43 Furosemide 20 Mg/2 Ml Vial IVPUSH 04/06/21 03:35 Not Given ONETIME ONE Furosemide 80 mg 04/06/21 03:39 04/06/21 03:52 Furosemide 40 Mg/4 Ml Vial IVPUSH 04/06/21 03:40 80 mg NOW ONE Administration Furosemide 80 mg 04/06/21 13:00 04/06/21 14:05 Furosemide 40 Mg/4 Ml Vial IVPUSH Not Given Q6H JOHNIE Furosemide 80 mg 04/06/21 14:00 04/06/21 14:28 Furosemide 100 Mg/10 Ml Sdv IVPUSH Not Given Q6H JOHNIE Hydromorphone HCl 1 mg 04/06/21 02:49 04/06/21 02:55 Hydromorphone 1 Mg/Ml Syringe IVPUSH 04/06/21 02:50 1 mg ONETIME ONE Administration Lactulose 30 gm 04/06/21 13:46 04/06/21 14:27 Lactulose Soln 10 Gm/15 Ml 15 Ml Ud Cup PO 04/06/21 13:47 30 gm ONETIME ONE Administration Lidocaine HCl 10 ml 04/06/21 10:17 04/06/21 12:09 Lidocaine 1% 10 Ml Mdv INJECT 04/06/21 10:18 Not Given ONETIME ONE Lidocaine HCl Confirm 04/06/21 10:23 04/06/21 12:07 Lidocaine 1% 5 Ml Sdv Administered 04/06/21 10:24 Not Given Dose 10 ml .ROUTE .STK-MED ONE Metolazone 20 mg 04/06/21 03:35 04/06/21 03:50 Metolazone 5 Mg Tab PO 04/06/21 03:36 20 mg ONETIME ONE Administration Departure - Departure Time of Disposition: 14:50 Condition: Good Sepsis Event Note (ED) - Focused Exam Vital Signs: Vital Signs Pulse BP Pulse Ox 04/06/21 06:39 82 110/55 L 98 04/06/21 05:27 84 117/59 L 98 04/06/21 04:01 83 120/55 L 97
[2021-04-06] MEDS ORDERED: HYDROmorphone 1 MG/ML Syringe IVPUSH ONE (02:49)
[2021-04-06 03:09] LABS: CARBON DIOXIDE,CO2 19.7 mmol/L (21.0-32.0)
[2021-04-06] MEDS ORDERED: Furosemide 20 MG/2 ML VIAL IVPUSH ONE (03:34)
[2021-04-06] MEDS ORDERED: Metolazone 5 MG Tab PO ONE (03:35)
[2021-04-06] MEDS ORDERED: Furosemide 40 MG/4 ML VIAL IVPUSH ONE (03:39)
--- NOTE | 2021-04-06 03:48 | CR ---
Indication: Significant lower extremity edema Technique: Chest 1 view Comparison: August 18, 2018 Findings/Impression: Normal cardiac size and pulmonary vasculature. Increased soft tissue density in the right paratracheal region. Consider nonemergent chest CT for further evaluation. No focal infiltrate, effusion, or pneumothorax. No acute osseous abnormality. Dictated by Yoselin Rosen MD @ 04/06/2021 3:46:38 AM (Electronically Signed)
[2021-04-06] MEDS ORDERED: Lidocaine 1% 10 ML MDV INJECT ONE (10:17)
[2021-04-06 10:37] LABS: CARBON DIOXIDE,CO2 19.9 mmol/L (21.0-32.0); POTASSIUM,K 4.2 mmol/L (3.5-5.1)
[2021-04-06] MEDS ORDERED: Furosemide 40 MG/4 ML VIAL IVPUSH SCH (13:00)
--- NOTE | 2021-04-06 13:27 | CT ---
INDICATION: Altered mental status COMPARISON: No prior relevant studies TECHNIQUE: CT examination of the head was performed as axial sections without intravenous contrast. Images were obtained from the vertex of the skull through the skull base. Please note that all CT scans at this facility use dose modulation, iterative reconstruction, and/or weight-based dosing when appropriate to reduce radiation dose to as low as reasonably achievable. FINDINGS: There are mild technical limitations due to motion artifact. The brain shows no sign of mass lesion, mass effect, hemorrhage, or edema. There are involutional changes. There is mild cortical atrophy and there is mild white matter disease. There is no hydrocephalus. The visualized portions of the orbits are normal in appearance. The osseous structures are normal in appearance with no sign of abnormality in the skull base or calvarium. IMPRESSION: Involutional changes. No acute-appearing findings. Please note that all CT scans at this facility use dose modulation, iterative reconstruction, and/or weight-based dosing when appropriate to reduce radiation dose to as low as reasonably achievable. Dictated by Curtis Ny MD @ 04/06/2021 1:25:42 PM (Electronically Signed)
[2021-04-06] MEDS ORDERED: Lactulose Soln 10 GM/15 ML 15 ML UD Cup PO ONE (13:46)
[2021-04-06] MEDS ORDERED: Furosemide 100 MG/10 ML SDV IVPUSH SCH (14:00)
[2021-04-06 14:01] LABS: CARBON DIOXIDE,CO2 20.4 mmol/L (21.0-32.0); POTASSIUM,K 4.1 mmol/L (3.5-5.1)
--- NOTE | 2021-04-06 14:07 | CT ---
INDICATION: End-stage renal disease. COMPARISON: The most recent available study dated August 18, 2018 TECHNIQUE: CT examination of the abdomen and pelvis was performed without intravenous contrast. Thin section axial images were obtained from the lung bases through the pubic symphysis. Oral contrast was not administered. Please note that all CT scans at this facility use dose modulation, iterative reconstruction, and/or weight-based dosing when appropriate to reduce radiation dose to as low as reasonably achievable. TECHNICAL NOTE: The study shows limitations due to lack of contrast, motion and patient positioning factors. FINDINGS: LUNG BASES: Opacities at the lung bases are likely due to atelectasis.The heart size is normal at the lung bases. LIVER/BILIARY SYSTEM:The liver has abnormal morphology most consistent with cirrhosis. I see no biliary ductal dilatation. No definite focal mass though study shows significant technical limitations. ADRENALS: Normal non-contrast appearance KIDNEYS, URETERS and BLADDER:The kidneys are normal in size. There is no focal mass or hydronephrosis on this noncontrast study. No calculi. SPLEEN:The spleen is heterogeneous with a nodular configuration as was noted on the prior study. Calcifications are likely granulomatous. PANCREAS: Not well evaluated but no definite focal mass. RETROPERITONEUM and MESENTERY: Prominent retroperitoneal lymph nodes. These are similar to the prior study. GASTROINTESTINAL SYSTEM: There is no evidence of diverticulitis, colitis, mechanical obstruction, or appendicitis. The small bowel as visualized appears normal.Scattered diverticulosis in fecal retention PELVIS: No visible pelvic mass.. OSSEOUS STRUCTURES and ABDOMINAL WALL: There is no destructive process of bone. There are degenerative changes of the spine and postsurgical changes involving the right hipno significant abdominal wall defect. OTHER: There is body wall edema and there is significant ascites. The ascites was present previously. A new factor on the current study is abnormal nodularity of the anterior peritoneal surfaces and the omentum. This raises the possibility of peritoneal carcinomatosis. Mother studies limited, I see no evident primary adenocarcinoma within the abdomen or pelvis IMPRESSION: 1. Nodularity of the omentum in the anterior peritoneal surfaces which is new since the prior study raising the possibility of peritoneal carcinomatosis. 2. Ascites which was present previously on the 2019 study. 3. Hepatic morphology of cirrhosis but no definite focal mass or biliary ductal dilatation. Nodular appearance of the spleen which was present previously probably related to prior granulomatous infection. 4. Minutes study due to technical factors Please note that all CT scans at this facility use dose modulation, iterative reconstruction, and/or weight-based dosing when appropriate to reduce radiation dose to as low as reasonably achievable. Dictated by Curtis Ny MD @ 04/06/2021 2:06:04 PM (Electronically Signed)
[2021-04-06 15:05] VITALS: BP 98/43; PULSE 89
[2021-04-07] MEDS ORDERED: Pantoprazole 40 MG in Sodium Chloride 0.9% 10 ML IV SCH (09:00)
== END 2021-04-06 16:00 ==
LOC: MW.ED 02:20 → UNDOADMIN 11:53 → MW.MS 11:53 → MW.ED 16:00
DX: K72.90 Hepatic failure, unspecified without coma (principal); E86.9 Volume depletion, unspecified; I12.0 Hypertensive chronic kidney disease with stage 5 chronic kidney disease or end stage renal disease; E11.22 Type 2 diabetes mellitus with diabetic chronic kidney disease; N18.6 End stage renal disease; K21.9 Gastro-esophageal reflux disease without esophagitis; Z88.5 Allergy status to narcotic agent; Z79.4 Long term (current) use of insulin; Z79.899 Other long term (current) drug therapy; Z20.822 Contact with and (suspected) exposure to COVID-19
CPT/HCPCS: 36415; 36600; 51702; 70450; 71045; 74176; 80048; 80053; 82140; 82803; 83735; 85025; 87635; 93005; 96374; 96375; 99285; A9270; J1170; J1940; U0002

== ENCOUNTER 2021-05-13 17:28 | Emergency (ER) | payer BC ==
[2021-05-13] MEDS ORDERED: Sodium Chloride 0.9% 10 ML Syringe FLUSH PRN (18:16)
[2021-05-13] MEDS ORDERED: Sodium Chloride 0.9% 2.5 ML Syringe FLUSH PRN (18:16)
--- NOTE | 2021-05-13 19:18 | PCM.EKG ---
#1 Interpretation EKG Interpretation Comments: KG done 05/13/2021 at 6:23 PM shows a heart rate of 103 with a sinus tachycardia. There is a OK interval 140 QT duration 5-3 QRS axis XX 6. There is prolonged QT which is borderline and there is probable left atrial enlargement. QRS ST and T are within normal limits. Impression no acute injury. This was compared to 04/06/2021 there is no significant change
--- NOTE | 2021-05-13 19:26 | EDM.PDOC ---
ED HPI GENERAL MEDICAL PROBLEM - General Chief Complaint: General Stated Complaint: LOW PLATELETTES AND BLEEDING Time Seen by Provider: 05/13/21 18:05 Source of Information: Reports: Patient, Family History Limitations: Reports: No Limitations - History of Present Illness INITIAL COMMENTS - FREE TEXT/NARRATIVE: HISTORY AND PHYSICAL: History of present illness: Patient is a 61-year-old female with a significant medical history for cirrhosis, renal failure on dialysis, hypertension, and diabetes, DNR/DNI status, who presents emergency room today from the dialysis center for concern of patient's platelets being low and having symptoms. Patient states that she feels incredibly tired and rundown and has been having bleeding gums. Patient states she also has a skin tear on her left arm that has been bleeding and having a hard time stopping. Patient did receive her full dialysis session today. Patient's daughter is also at bedside who is retrieving DNR/DNI paperwork for us to scan into our files. Daughter states that patient seems significantly more tired and rundown and is able to wake up but more difficult than her baseline. Daughter states that she does usually get water out after dialysis but is not to this extent and is concerned for her mother. Patient denies fever, chills, chest pain, shortness of breath, or cough. Denies headache, neck stiff ness, change in vision, syncope, or near syncope. Denies nausea, vomiting, abdominal pain, diarrhea, constipation, or dysuria. Has not noted any blood in urine or stool. Review of systems: As per history of present illness and below otherwise all systems reviewed and negative. Past medical history: As per history of present illness and as reviewed below otherwise noncontributory. Surgical history: As per history of present illness and as reviewed below otherwise noncontributory. Social history: See social history for further information Family history: As per history of present illness and as reviewed below otherwise noncontributory. Physical exam: General: Patient is asleep but arousable and slow to respond, but she is oriented x 3, and in no acute distress. Patient laying comfortably on exam table. Severely pale/jaundice and chronically ill appearing. HEENT: Atraumatic, normocephalic, pupils equal and reactive bilaterally, negative for conjunctival pallor or scleral icterus, mucous membranes dry and bloody gums, throat clear, neck supple, nontender, trachea midline. No drooling or trismus noted. No meningeal signs. No hot potato voice noted. Lungs: Clear to auscultation, breath sounds equal bilaterally, chest nontender. Heart: S1S2, regular rate and rhythm without overt murmur Abdomen: There is presumed peritoneal draining from site at the RLQ from presumed prior paracentesis. Soft, nondistended, nontender. Negative for masses or hepatosplenomegaly. Negative for costovertebral tenderness. Pelvis: Stable nontender. Genitourinary: Deferred. Rectal: Deferred. Skin: Diffuse petechia/purpura across the chest/arms. Large amount of areas of ecchymosis of the diffuse back. Patient does have a large skin abrasion of her left forearm and her right proximal humeral area. No surrounding areas of cellulitis. Extremities: 3+ bilateral pitting edema of bilateral lower extremities to the hips. Atraumatic, negative for cords or calf pain. Neurovascular unremarkable. Neuro: Awake, alert, oriented. Cranial nerves II through XII unremarkable. Cerebellum unremarkable. Motor and sensory unremarkable throughout. Exam nonfocal. Medical Decision Making: Patient is a 61-year-old female with a chronic medical history as described above, current DNI/DNR status, presenting from dialysis for concern of low platelets. Upon arrival to the ED, patient is asleep on exam but is arousable. She has slow to respond but is oriented to person place and time. Examination does show that she has dry mucous membranes with gums that are diffusely bloody but not actively bleeding. Patient has dried blood around her lips. Patient is also chronically ill-appearing, pale and jaundiced on exam. Patient is mildly tachycardic 110s on exam, blood pressure is softer at 100/60, otherwise vitally stable. There is also a area of draining peritoneal fluid from a prior paracentesis needle insertion site in the right lower quadrant of the abdomen draining a moderate amount of fluid. This fluid appears to be clear/yellow, however difficult to fully assess. Patient also has multiple skin tears on her left forearm and right shoulder which according to daughter have been difficult to get to stop bleeding and have Coban dressing to apply pressure. Patient was fully evaluated and all dressings were removed. The areas are not actively bleeding at this time, however, do appear that they could start bleeding again at any time and covered up with sterile dressing per nursing staff. Patient also has 3+ bilateral pitting edema of her lower extremities to the hips. Also in the process of obtaining DNR/DNI paperwork per the daughter. See Dr. Navarro's dictation for specific EKG interpretation. Otherwise, sinus tachycardia with rate of 103 without STEMI. CBC is remarkable for leukocytosis at 17.92, anemia with red blood cells at 2.61, hemoglobin 8.8 (has decreased from 12.6 on prior labs) , and hematocrit of 26.3. Patient does have macrocytic indices with MCV of 100.8, MCH 33.7, RDW of 24. Patient is significantly thrombocytopenic of 27 (greatly decreased from normal platelets on recent labs). Our facility does not have platelets to transfuse the patient. These new changes and coagulation status along with patient's physical exam findings are concerning for DIC. INR is elevated at 2.1, PTT also elevated at 82.6. CMP shows mild hyponatremia at 132, potassium mildly decreased at 3.3 and chloride 96. BUN and creatinine are at 6 and 2.8 respectively and expected to be elevated. Lactic acid is significantly elevated at 3.1. Bilirubin is also elevated per patient's baseline at 3.7, AST 106, alk phos of 222. Troponin negative. Ammonia is within normal limits. Lipase within normal limits. Covid and influenza are negative. Head CT shows cerebral volume loss. No sign of hemorrhage or other acute intracranial radiographic abnormality. Chest x-ray shows no acute cardiopulmonary findings. At this time, patient temperature is less than 36 C, heart rate greater than 90, white blood cell count greater than 12,000. Patient also has a lactic acid greater than 2, creatinine greater than 2, bilirubin greater than 2, and platelets less than 100,000. Patient's INR is also greater than 2 and a PTT greater than 60. Because of this, patient does meet code sepsis. At this time, because patient is a dialysis patient, the full 30 cc/kg bolus is not provided. However, will give a 1 L fluid bolus. This was confirmed and agreed upon with Dr. Navarro. Blood cultures have been obtained and pending. Will initiate Zosyn and vancomycin empirically at this time. At this time, possible SBP considered as a source as patient does have presumed peritoneal fluid draining from her abdomen at the right prior paracentesis needle insertion site. Will not perform a diagnostic paracentesis at this time as patient platelets are too low and patient is a high bleeding risk at this time. [facility] at capacity. [facility] at capacity. [facility] does not have any ICU bed availability, however, will discuss patient's case with the hospitalist to see if she is able to be on the regular hospital floor service and will inform me. Dr. Wilson, hospitalist on-call for [facility] feels that patient requires an ICU bed. He does not have an ICU bed available for patient at this time. I did call and speak to [facility], they are checking their ICU bed capability for patient and will call me back in 10 to 15 minutes. When reexamining of patient, she is now hesitant about foregoing any additional treatment and she states that she does feel tired and does not feel like she has any more energy to overcome these next obstacles. After an extensive and long conversation with patient, her daughter and son at bedside, patient ultimately decided that she would like to go home with comfort cares and referral for Hospice. She did decide that she would like to continue oral antibiotics at home but is ultimately would desire to withdraw from dialysis and no longer wants to do this and wants to be comfortable at home with her family by her side. The patient is clinically not intoxicated, free from distracting pain, appears to have intact insight, judgment and reason and in my medical opinion has the capacity to make decisions. The patient is also not under any duress to leave the hospital. In this scenario, it would be battery to subject a patient to treatment against her will. I thoroughly discussed with patient that choosing to go home on comfort care/not continuing any further treatment is ultimately end of life and to anticipate the end of life soon. I answered all of her and her families questions about her condition and asked her to return to the ED as she needs or desires. Expresses understanding with no additional questions. A fax referral sent to Hospice care. Diagnostics: Ammonia, CBC, CMP, COVID/influenza, blood cultures x2, PT/INR, lactic acid, lipase, PTT, troponin, type and screen, urinalysis, chest x-ray, head CT without contrast, bedside glucose Therapeutics: NS 1 L, Vancomycin, Zosyn Impression: SEPSIS source unknown, possible peritonitis secondary to percutaneous peritoneal drainage of the right lower abdomen Disseminated intravascular coagulation End stage renal failure on dialysis Liver cirrhosis Comfort Care Plan: 1. You have decided to go through with comfort care / Hospice with end of life comfort cares as we discussed today in the ED. I have [facility] and they also need your primary care provider Dr. Romero to also place an order. I would like you to try to get ahold of him tomorrow morning to discuss what has occurred today and your desire for comfort care and Hospice. 2. You have decided you would like to continue antibiotics at home. Your prescription has been sent to [facility]. 3. Return to the ED as needed and as discussed. Critical care time is exclusive of billable procedures and the time to perform these procedures. Critical care time was used to prevent vital system organ failure and deterioration. Critical care time includes bedside management and high-complexity decision making requiring my highest level of mental preparedness and attention. This includes reviewing the patient's chart and prior medical records, ordering and reviewing interpreting laboratory studies and imaging results, interpretation of vital signs and EKG, pulse oximetry, and discussion with the with EMS and nursing staff. Patient presented with multiple critical lab values that required immediate intervention to the ICU for additional close monitoring and continuation of treatment.Ultimately patient decided to not forgo any additional treatment and choose to discharge to home with comfort care and referral to Hospice. CC Time: 210 minutes Definitive disposition and diagnosis as appropriate pending reevaluation and review of above. - Related Data Allergies Allergy/AdvReac Type Severity Reaction Status Date / Time oxycodone [From Percocet] Allergy Itching Verified 05/13/21 18:00 Home Meds: Home Meds Sertraline [Zoloft] 50 mg PO DAILY 01/16/16 [History] Amylase/Lipase/Protease [Alexei LARRY 24,000 Unit] 48,000 unit PO TIDMEALS 06/01/16 [History] ondansetron HCL [Ondansetron] 4 mg PO Q4H PRN 06/01/16 [History] Omeprazole 40 mg PO DAILY 08/18/18 [History] HYDROmorphone [Dilaudid] 2 mg PO TID PRN 12/09/20 [History] Insulin Aspart (Niacinamide) [Fiasp 100 Unit/ml Flextouch] 5 - 7 unit SQ TIDMEALS 12/09/20 [History] Insulin Glargine,Hum.Rec.Anlog [Lantus Solostar] 20 unit PO BEDTIME 12/09/20 [History] Midodrine 10 mg PO TID 12/09/20 [History] Sennosides/Docusate Sodium [Senna Plus 8.6-50 mg Softgel] 1 cap PO BEDTIME PRN 12/09/20 [History] Amoxicillin/Potassium Clav [Augmentin 875-125 Tablet] 1 each PO BID 14 Days #28 tablet 05/14/21 [Rx] Past Medical History - Past Health History Medical/Surgical History: Denies Medical/Surgical History HEENT History: Reports: Cataract, Other (See Below) Other HEENT History: wears glasses Cardiovascular History: Reports: Hypertension Respiratory History: Reports: None Gastrointestinal History: Reports: Colon Polyp, GERD, Pancreatitis Genitourinary History: Reports: None 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: Musculoskeletal History: Reports: Arthritis Neurological History: Reports: None Psychiatric History: Reports: Anxiety, Other (See Below) Other Psychiatric History: hx of claustrophobia Endocrine/Metabolic History: Reports: IDDM Hematologic History: Reports: None Immunologic History: Reports: None Oncologic (Cancer) History: Reports: None Dermatologic History: Reports: None - Infectious Disease History Infectious Disease History: Reports: Chicken Pox - Past Surgical History Head Surgeries/Procedures: Reports: None HEENT Surgical History: Reports: Cataract Surgery Other HEENT Surgeries/Procedures: cataract surgery both eyes Cardiovascular Surgical History: Reports: None Respiratory Surgical History: Reports: None GI Surgical History: Reports: Cholecystectomy, Colonoscopy, EGD, Other (See Below) Other GI Surgeries/Procedures: hx of whipple procedure done in August of 2014 for a cyst on the head of the pancreas Female Surgical History: Reports: None Endocrine Surgical History: Reports: None Neurological Surgical History: Reports: None Musculoskeletal Surgical History: Reports: Hip Replacement Other Musculoskeletal Surgeries/Procedures:: Rt hip replacement Oncologic Surgical History: Reports: None Dermatological Surgical History: Reports: None Social & Family History - Family History Family Medical History: No Pertinent Family History - Caffeine Use Caffeine Use: Reports: None - Recreational Drug Use Recreational Drug Use: No ED ROS GENERAL - Review of Systems Review Of Systems: Comprehensive ROS is negative, except as noted in HPI. ED EXAM, GENERAL - Physical Exam Exam: See Below (see dictation) Course - Vital Signs Last Recorded V/S: Last Vital Signs Temp 97.7 F 05/13/21 17:56 Pulse 89 05/14/21 00:30 Resp 15 05/14/21 00:30 BP 84/46 L 05/14/21 00:30 Pulse Ox 96 05/14/21 00:30 - Orders/Labs/Meds Orders: Active Orders 24 hr Category Date Time Status Blood Glucose Check, Bedside [RC] ONETIME Care 05/13/21 18:34 Active CULTURE BLOOD [BC] Stat Lab 05/13/21 19:00 Results CULTURE BLOOD [BC] Stat Lab 05/13/21 19:23 Received LACTIC ACID [CHEM] Routine Lab 05/14/21 00:15 Ordered UA RFX LAURENT AND CULT IF INDIC [URIN] Stat Lab 05/13/21 18:16 Ordered Pharmacy to Dose - Vancomycin Med 05/13/21 20:30 Pending 1 dose .XX ASDIRECTED Sodium Chloride 0.9% [Saline Flush] Med 05/13/21 18:16 Active 10 ml FLUSH ASDIRECTED PRN Sodium Chloride 0.9% [Saline Flush] Med 05/13/21 18:16 Active 2.5 ml FLUSH ASDIRECTED PRN Blood Culture x2 Reflex Set [OM.PC] Stat Oth 05/13/21 18:17 Ordered Saline Lock Insert [OM.PC] Stat Oth 05/13/21 18:16 Ordered Medication Orders Sodium Chloride (Sodium Chloride 0.9% 10 Ml Syringe) 10 ml FLUSH ASDIRECTED PRN PRN Reason: Keep Vein Open Last Admin: 05/13/21 19:21 Dose: 10 ml Documented by: GILES Sodium Chloride (Sodium Chloride 0.9% 2.5 Ml Syringe) 2.5 ml FLUSH ASDIRECTED PRN PRN Reason: Keep Vein Open Last Admin: 05/13/21 19:21 Dose: 2.5 ml Documented by: KARINAUALBreann Vancomycin HCl (Pharmacy To Dose - Vancomycin) 1 dose .XX ASDIRECTED JOHNIE Labs: Laboratory Tests 05/13/21 05/13/21 05/13/21 Range/Units 19:00 19:00 19:00 WBC 17.92 H (4.0-11.0) K/uL RBC 2.61 L (4.30-5.90) M/uL Hgb 8.8 L (12.0-16.0) g/dL Hct 26.3 L (36.0-46.0) % MCV 100.8 H (80.0-98.0) fL MCH 33.7 H (27.0-32.0) pg MCHC 33.5 (31.0-37.0) g/dL RDW Std Deviation 82.1 H (28.0-62.0) fl RDW Coeff of Rosalinda 24 H (11.0-15.0) % Plt Count 27 L (150-400) K/uL MPV 12.40 H (7.40-12.00) fL Neut % (Auto) 82.8 H (48.0-80.0) % Lymph % (Auto) 10.8 L (16.0-40.0) % [place] % (Auto) 5.4 (0.0-15.0) % Eos % (Auto) 0.4 (0.0-7.0) % Baso % (Auto) 0.6 (0.0-1.5) % Neut # (Auto) 14.9 H (1.4-5.7) K/uL Lymph # (Auto) 1.9 (0.6-2.4) K/uL [place] # (Auto) 1.0 H (0.0-0.8) K/uL Eos # (Auto) 0.1 (0.0-0.7) K/uL Baso # (Auto) 0.1 (0.0-0.1) K/uL Nucleated RBC % 0.3 /100WBC Nucleated RBCs # 0 K/uL INR APTT (18.6-31.3) SEC Sodium (136-145) mmol/L Potassium (3.5-5.1) mmol/L Chloride (98-107) mmol/L Carbon Dioxide (21.0-32.0) mmol/L BUN (7.0-18.0) mg/dL Creatinine (0.6-1.0) mg/dL Est Cr Clr Drug Dosing mL/min Estimated GFR (MDRD) ml/min Glucose (74-106) mg/dL POC Glucose 119 H (70-99) mg/dL Lactic Acid (0.4-2.0) mmol/L Calcium (8.5-10.1) mg/dL Total Bilirubin (0.2-1.0) mg/dL AST (15-37) IU/L ALT (14-63) IU/L Alkaline Phosphatase (46-116) U/L Ammonia (19-54) ug/dL Troponin I (0.000-0.056) ng/mL Total Protein (6.4-8.2) g/dL Albumin (3.4-5.0) g/dL Globulin (2.6-4.0) g/dL Albumin/Globulin Ratio (0.9-1.6) Lipase (73-393) U/L Influenza Type A RNA (NEGATIVE) Influenza Type B RNA (NEGATIVE) SARS-CoV-2 RNA (LACHO) (NEGATIVE) Blood Type O POSITIVE Antibody Screen NEGATIVE 05/13/21 05/13/21 05/13/21 Range/Units 19:23 19:23 19:23 WBC (4.0-11.0) K/uL RBC (4.30-5.90) M/uL Hgb (12.0-16.0) g/dL Hct (36.0-46.0) % MCV (80.0-98.0) fL MCH (27.0-32.0) pg MCHC (31.0-37.0) g/dL RDW Std Deviation (28.0-62.0) fl RDW Coeff of Rosalinda (11.0-15.0) % Plt Count (150-400) K/uL MPV (7.40-12.00) fL Neut % (Auto) (48.0-80.0) % Lymph % (Auto) (16.0-40.0) % [place] % (Auto) (0.0-15.0) % Eos % (Auto) (0.0-7.0) % Baso % (Auto) (0.0-1.5) % Neut # (Auto) (1.4-5.7) K/uL Lymph # (Auto) (0.6-2.4) K/uL [place] # (Auto) (0.0-0.8) K/uL Eos # (Auto) (0.0-0.7) K/uL Baso # (Auto) (0.0-0.1) K/uL Nucleated RBC % /100WBC Nucleated RBCs # K/uL INR 2.10 APTT 82.6 H (18.6-31.3) SEC Sodium 132 L (136-145) mmol/L Potassium 3.3 L (3.5-5.1) mmol/L Chloride 96 L (98-107) mmol/L Carbon Dioxide 28.2 (21.0-32.0) mmol/L BUN 6 L (7.0-18.0) mg/dL Creatinine 2.8 H (0.6-1.0) mg/dL Est Cr Clr Drug Dosing 23.10 mL/min Estimated GFR (MDRD) 17.2 ml/min Glucose 127 H (74-106) mg/dL POC Glucose (70-99) mg/dL Lactic Acid 3.1 H* (0.4-2.0) mmol/L Calcium 8.4 L (8.5-10.1) mg/dL Total Bilirubin 3.7 H (0.2-1.0) mg/dL AST 106 H (15-37) IU/L ALT 25 (14-63) IU/L Alkaline Phosphatase 222 H (46-116) U/L Ammonia (19-54) ug/dL Troponin I < 0.050 (0.000-0.056) ng/mL Total Protein 6.6 (6.4-8.2) g/dL Albumin 2.2 L (3.4-5.0) g/dL Globulin 4.4 H (2.6-4.0) g/dL Albumin/Globulin Ratio 0.5 L (0.9-1.6) Lipase 30 L (73-393) U/L Influenza Type A RNA (NEGATIVE) Influenza Type B RNA (NEGATIVE) SARS-CoV-2 RNA (LACHO) (NEGATIVE) Blood Type Antibody Screen 05/13/21 05/13/21 Range/Units 19:23 19:41 WBC (4.0-11.0) K/uL RBC (4.30-5.90) M/uL Hgb (12.0-16.0) g/dL Hct (36.0-46.0) % MCV (80.0-98.0) fL MCH (27.0-32.0) pg MCHC (31.0-37.0) g/dL RDW Std Deviation (28.0-62.0) fl RDW Coeff of Rosalinda (11.0-15.0) % Plt Count (150-400) K/uL MPV (7.40-12.00) fL Neut % (Auto) (48.0-80.0) % Lymph % (Auto) (16.0-40.0) % [place] % (Auto) (0.0-15.0) % Eos % (Auto) (0.0-7.0) % Baso % (Auto) (0.0-1.5) % Neut # (Auto) (1.4-5.7) K/uL Lymph # (Auto) (0.6-2.4) K/uL [place] # (Auto) (0.0-0.8) K/uL Eos # (Auto) (0.0-0.7) K/uL Baso # (Auto) (0.0-0.1) K/uL Nucleated RBC % /100WBC Nucleated RBCs # K/uL INR APTT (18.6-31.3) SEC Sodium (136-145) mmol/L Potassium (3.5-5.1) mmol/L Chloride (98-107) mmol/L Carbon Dioxide (21.0-32.0) mmol/L BUN (7.0-18.0) mg/dL Creatinine (0.6-1.0) mg/dL Est Cr Clr Drug Dosing mL/min Estimated GFR (MDRD) ml/min Glucose (74-106) mg/dL POC Glucose (70-99) mg/dL Lactic Acid (0.4-2.0) mmol/L Calcium (8.5-10.1) mg/dL Total Bilirubin (0.2-1.0) mg/dL AST (15-37) IU/L ALT (14-63) IU/L Alkaline Phosphatase (46-116) U/L Ammonia 41 (19-54) ug/dL Troponin I (0.000-0.056) ng/mL Total Protein (6.4-8.2) g/dL Albumin (3.4-5.0) g/dL Globulin (2.6-4.0) g/dL Albumin/Globulin Ratio (0.9-1.6) Lipase (73-393) U/L Influenza Type A RNA NEGATIVE (NEGATIVE) Influenza Type B RNA NEGATIVE (NEGATIVE) SARS-CoV-2 RNA (LACHO) NEGATIVE (NEGATIVE) Blood Type Antibody Screen Meds: Medications Generic Name Dose Route Start Last Admin Trade Name Freq PRN Reason Stop Dose Admin Sodium Chloride 10 ml 05/13/21 18:16 05/13/21 19:21 Sodium Chloride 0.9% 10 Ml Syringe FLUSH 10 ml ASDIRECTED PRN Administration Keep Vein Open Sodium Chloride 2.5 ml 05/13/21 18:16 05/13/21 19:21 Sodium Chloride 0.9% 2.5 Ml Syringe FLUSH 2.5 ml ASDIRECTED PRN Administration Keep Vein Open Vancomycin HCl 1 dose 05/13/21 20:30 Pharmacy To Dose - Vancomycin .XX ASDIRECTED JOHNIE Discontinued Medications Generic Name Dose Route Start Last Admin Trade Name Freq PRN Reason Stop Dose Admin Piperacillin Sod/Tazobactam 50 mls @ 100 mls/hr 05/13/21 20:22 05/13/21 20:30 Sod 3.375 gm/ Sodium Chloride IV 05/13/21 20:51 100 mls/hr ONETIME ONE Administration Sodium Chloride 1,000 mls @ 999 mls/hr 05/13/21 20:31 05/13/21 20:32 Normal Saline IV 05/13/21 21:31 999 mls/hr STAT ONE Administration Vancomycin HCl 1.75 gm/ Premix 350 mls @ 200 mls/hr 05/13/21 20:45 05/13/21 20:58 IV 05/13/21 22:29 200 mls/hr STAT ONE Administration Midodrine 20 mg 05/14/21 00:07 05/14/21 00:25 Midodrine 5 Mg Tab PO 05/14/21 00:08 20 mg TIDAC STA Administration Departure - Departure Time of Disposition: 01:00 Disposition: Home, Self-Care 01 Clinical Impression: Disseminated intravascular coagulation, Sepsis, Need for comfort care, Thrombocytopenia, Anemia, Liver cirrhosis - Discharge Information Prescriptions: Amoxicillin/Potassium Clav [Augmentin 875-125 Tablet] 1 each PO BID 14 Days #28 tablet Instructions: Hospice, Sepsis, Self Care, Adult Referrals: Antony Romero MD [Primary Care Provider] - Forms: ED Department Discharge Additional Instructions: The following information is given to patients seen in the emergency department who are being discharged to home. This information is to outline your options for follow-up care. We provide all patients seen in our emergency department with a follow-up referral. The need for follow-up, as well as the timing and circumstances, are variable depending upon the specifics of your emergency department visit. If you don't have a primary care physician on staff, we will provide you with a referral. We always advise you to contact your personal physician following an emergency department visit to inform them of the circumstance of the visit and for follow-up with them and/or the need for any referrals to a consulting specialist. The emergency department will also refer you to a specialist when appropriate. This referral assures that you have the opportunity for follow-up care with a specialist. All of these measure are taken in an effort to provide you with optimal care, which includes your follow-up. Under all circumstances we always encourage you to contact your private physi teri who remains a resource for coordinating your care. When calling for follow- up care, please make the office aware that this follow-up is from your recent emergency room visit. If for any reason you are refused follow-up, please contact the [facility] at and asked to speak to the emergency department charge nurse. [facility] [address] [place] [address] [place] [id number] 1. You have decided to go through with comfort care / Hospice with end of life goals as we discussed today in the ED. I have [facility]ed [facility] and they also need your primary care provider Dr. Romero to also place an order. I would like you to try to get ahold of him tomorrow morning to discuss what has occurred today and your desire for comfort care and Hospice. 2. You have decided you would like to continue antibiotics at home. Your prescription has been sent to [facility]. 3. Return to the ED as needed and as discussed. Sepsis Event Note (ED) - Evaluation Sepsis Screening Result: No Definite Risk Current Stage of Sepsis: Severe Sepsis Possible Source of Sepsis: Unknown - Focused Exam Sepsis Event Note Statement: Focused Sepsis Exam Completed Vital Signs: Vital Signs Temp Pulse Resp BP Pulse Ox 05/14/21 00:30 89 15 84/46 L 96 05/13/21 23:28 88 85/36 L 95 05/13/21 22:40 86 93/51 L 98 05/13/21 21:10 93 102/63 98 05/13/21 20:40 91 95/56 L 98 05/13/21 19:40 90 105/61 94 L 05/13/21 19:21 89 16 104/64 97 05/13/21 19:11 100 17 89/35 L 97 05/13/21 17:56 97.7 F 109 H 18 102/48 L 96 Respiratory Effort Without Exertion: Other (see below) (No acute distress) Capillary Refill, Detail: Greater than (>) 2 Seconds Pulse Description: 1+ Thready Peripheral Pulse Location: Radial Skin Exam (Focused Sepsis): Pale Date Exam was Performed: 05/13/21 Time Exam was Performed: 20:50 - My Orders Last 24 Hours: My Active Orders 05/13/21 18:16 UA RFX LAURENT AND CULT IF INDIC [URIN] Stat Sodium Chloride 0.9% [Saline Flush] 10 ml FLUSH ASDIRECTED PRN Sodium Chloride 0.9% [Saline Flush] 2.5 ml FLUSH ASDIRECTED PRN Saline Lock Insert [OM.PC] Stat 05/13/21 18:17 Blood Culture x2 Reflex Set [OM.PC] Stat 05/13/21 18:34 Blood Glucose Check, Bedside [RC] ONETIME 05/13/21 19:00 CULTURE BLOOD [BC] Stat 05/13/21 19:23 CULTURE BLOOD [BC] Stat 05/13/21 20:30 Pharmacy to Dose - Vancomycin 1 dose .XX ASDIRECTED 05/14/21 00:15 LACTIC ACID [CHEM] Routine - Assessment/Plan Last 24 Hours: My Active Orders 05/13/21 18:16 UA RFX LAURENT AND CULT IF INDIC [URIN] Stat Sodium Chloride 0.9% [Saline Flush] 10 ml FLUSH ASDIRECTED PRN Sodium Chloride 0.9% [Saline Flush] 2.5 ml FLUSH ASDIRECTED PRN Saline Lock Insert [OM.PC] Stat 05/13/21 18:17 Blood Culture x2 Reflex Set [OM.PC] Stat 05/13/21 18:34 Blood Glucose Check, Bedside [RC] ONETIME 05/13/21 19:00 CULTURE BLOOD [BC] Stat 05/13/21 19:23 CULTURE BLOOD [BC] Stat 05/13/21 20:30 Pharmacy to Dose - Vancomycin 1 dose .XX ASDIRECTED 05/14/21 00:15 LACTIC ACID [CHEM] Routine
[2021-05-13 20:12] LABS: BLOOD UREA NITROGEN,BUN 6 mg/dL (7.0-18.0); CARBON DIOXIDE,CO2 28.2 mmol/L (21.0-32.0); CHLORIDE,CL 96 mmol/L (98-107); GLUCOSE RANDOM 127 mg/dL (74-106); LIPASE 30 U/L (73-393); POTASSIUM,K 3.3 mmol/L (3.5-5.1); SODIUM,NA 132 mmol/L (136-145)
--- NOTE | 2021-05-13 20:12 | CR ---
INDICATION: Altered mental status. TECHNIQUE: Chest 1 view. COMPARISON: Chest radiograph 04/06/2021. FINDINGS: No focal consolidation, pleural effusion, or pneumothorax. The previously seen right paratracheal density is no longer identified. Normal heart size and pulmonary vascularity. Placement of a right IJ CVC with tip in the right atrium. Mild degenerative changes of the shoulders. IMPRESSION: No acute cardiopulmonary findings. Dictated by Rachel Oliva MD @ 05/13/2021 8:12:14 PM (Electronically Signed)
[2021-05-13] MEDS ORDERED: Piperacillin/Tazobactam 3.375 GM in Sodium Chloride 0.9% 50 ML IV ONE (20:22)
[2021-05-13 20:27] LABS: CORONAVIRUS COVID-19 NAA NEGATIVE (NEGATIVE); INFLUENZA A NAA NEGATIVE (NEGATIVE); INFLUENZA B NAA NEGATIVE (NEGATIVE)
[2021-05-13] MEDS ORDERED: Sodium Chloride 0.9% 1,000 ML IV ONE (20:31)
--- NOTE | 2021-05-13 20:44 | CT ---
INDICATION: Altered mental status. TECHNIQUE: CT scan of the brain without contrast. FINDINGS: Brain: No intra-axial hemorrhage or obvious mass. The ventricles are midline and normal in size. Extra-axial spaces: There prominent extra-axial spaces over the convexities and the frontal lobes with no signs of acute hemorrhage. Calvarium: Unremarkable. IMPRESSION: 1. Cerebral volume loss. 2. No signs of hemorrhage or other acute intracranial radiographic abnormality. 3. There is little overall change from prior CT exam of the brain April 06, 2021. Please note that all CT scans at this facility use dose modulation, iterative reconstruction, and/or weight-based dosing when appropriate to reduce radiation dose to as low as reasonably achievable. Dictated by Dg Reilly MD @ 05/13/2021 8:42:31 PM (Electronically Signed)
[2021-05-13] MEDS ORDERED: VANCOmycin 1.75 GM/350 ML 1.75 GM in Premix Bag 1 BAG IV ONE (20:45)
[2021-05-14] MEDS ORDERED: Midodrine 5 MG Tab PO STA (00:07)
[2021-05-14 01:18] VITALS: BP 94/52; PULSE 85
[2021-05-14] MEDS ORDERED: VANCOmycin 1.25 GM/250 ML 1.25 GM in Premix Bag 1 BAG IV SCH (20:00)
== END 2021-05-14 01:18 | disposition home or self-care (01) ==
LOC: MW.ED 17:28
DX: A41.9 Sepsis, unspecified organism (principal); K74.60 Unspecified cirrhosis of liver; I12.0 Hypertensive chronic kidney disease with stage 5 chronic kidney disease or end stage renal disease; E11.22 Type 2 diabetes mellitus with diabetic chronic kidney disease; N18.6 End stage renal disease; K21.9 Gastro-esophageal reflux disease without esophagitis; D63.1 Anemia in chronic kidney disease; D69.6 Thrombocytopenia, unspecified; D68.9 Coagulation defect, unspecified; Z88.5 Allergy status to narcotic agent; Z99.2 Dependence on renal dialysis; Z79.899 Other long term (current) drug therapy; Z20.822 Contact with and (suspected) exposure to COVID-19
CPT/HCPCS: 0240U; 36415; 70450; 71045; 80053; 82140; 82947; 83605; 83690; 84484; 85025; 85610; 85730; 86850; 86900; 86901; 87040; 93005; 96365; 96366; 96375; 99284; A9270; J2543; J3370; J7030